=== PATIENT | male | born 1940 | race Caucasian/White ===

== ENCOUNTER → 2023-12-26 13:04 | Outpatient (REF) | payer MEDICARE, OTHER, SELFPAY | LOC: DHVS 13:04 | PROVIDERS: ATTENDING PHYSICIAN Surgery Vascular Surgery | DX: I73.9 Peripheral vascular disease, unspecified (principal) | CPT/HCPCS: 93922; 93925 ==

== ENCOUNTER → 2024-07-07 08:04 | Outpatient (REF) | payer MEDICARE, OTHER, SELFPAY | LOC: RAD 08:04 | PROVIDERS: ATTENDING PHYSICIAN Surgery Vascular Surgery; FAMILY PHYSICIAN Family Medicine | DX: I73.9 Peripheral vascular disease, unspecified (principal) | CPT/HCPCS: 93922; 93925 ==

== ENCOUNTER 2024-08-03 08:39 | Day surgery (SDC) | payer MEDICARE, OTHER, SELFPAY ==
[2024-08-03] VITALS (10 sets, daily range): BP systolic 124–180; BP diastolic 51–68; BMI 23.2
[2024-08-03 09:37] LABS: Hemoglobin 11.2 g/dL (13.0-18.0); Mean Corp Hgb Conc. 33.9 g/dL (33.0-37.0); Mean Corpuscular Hgb 36.1 pg (27.0-31.0); Mean Corpuscular Volume 106.5 fL (80.0-94.0); Mean Platelet Volume 9.8 fL (7.4-10.4); Platelet Count 192 10^3/uL (130-400); Red Cell Dist. Width 15.6 % (11.5-14.5); White Blood Cell Count 8.1 10^3/uL (4.8-10.8)
[2024-08-03] MEDS: NSS 500 IV (09:40)
--- NOTE | 2024-08-03 09:49 | W.SUR.PREOP ---
Pre-Operative Surgical Note
-
I have examined this patient prior to the performance of the scheduled procedure.
The patient's condition is unchanged from the time of the current History and
Physical and the patient is able to undergo the scheduled procedure.
[2024-08-03] MEDS: BACTROBAN NASAL 1 GRAM NASAL (10:05)
[2024-08-03] MEDS: PERIDEX 0.12% ORAL RINSE 15 ML PO (10:05)
[2024-08-03 10:12] LABS: INR 1.16; PT 15.1 Sec (11.4-14.6)
[2024-08-03 10:13] LABS: APTT 34.6 Sec (23.4-35.0)
[2024-08-03 10:55] LABS: Blood Urea Nitrogen 42 mg/dl (9-20); Calcium 8.6 mg/dl (8.4-10.2); Carbon Dioxide 29 mmol/L (22-30); Chloride 98 mmol/L (98-107); Estimated Creatinine Clearance 8 ml/min; Glucose 85 mg/dl (70-99); Potassium 4.7 mmol/L (3.5-5.1); Sodium 139 mmol/L (135-145); eGFR 7.57
--- NOTE | 2024-08-03 11:44 | W.SUR.POST ---
Surgical Immediate Post Op
Note
Pre Op Diagnosis: End-stage renal disease
Post Op Diagnosis: Same
Procedure Performed: Right upper extremity brachiobasilic AV fistula creation
Primary Surgeon: Darryl
Assist: Kameron PARDO
Anesthesia: LMA
Estimated Blood Loss: 5 cc
Fluids: See anesthesia flowsheet
Drains/Shunts: None
Specimens/Cultures: None
Doppler/Duplex/Angio (Y/N): Y
Complications: None
Operative Findings: Palpable thrill upon completion
--- NOTE | 2024-08-03 12:06 | OR.RPT ---
Operative Report
Operative Report
PROCEDURE DATE: 08/03/2024
Preoperative diagnosis: End-stage renal disease on hemodialysis
Postoperative diagnosis: Same
Procedure: Right upper extremity radiocephalic arteriovenous fistula creation
Surgeon: Darryl
Dining Room Hostess: RUSTY Melo, required for all aspects of procedure including assistance with traction/countertraction, following of suture line, assistance with closure.
Complications: None
Anesthesia: General
Indications for procedure:
End-stage renal disease on hemodialysis. Required more permanent access. Currently dialyzed via tunneled dialysis catheter. Left hand dominant. Risk/benefits/alternatives of fistula creation were discussed with the patient. He understood all
wish to proceed.
Description of procedure:
Patient was identified brought to the operating room placed on the table in supine position. After the induction of anesthesia I used a ultrasound to map the upper extremity veins myself. The cephalic vein in the upper arm but also in the forearm
looks very suitable. The radial artery itself also was very suitable with no evidence of inflow disease. Strong pulsation. Therefore I felt radiocephalic wrist fistula was very reasonable.
After the adequate administration of anesthesia and perioperative antibiotics he was prepped and draped in the standard surgical fashion. A standard preoperative timeout was undertaken and everybody was in agreement the plan. A longitudinal
incision was made distal forearm/wrist on the radial aspect in the right upper extremity. This was carried through skin subcutaneous tissue.
A small lateral subcutaneous flap was raised and the cephalic vein was identified. It was carefully dissected away from surrounding structures take great care to avoid any injury to the structures. Any branches were ligated between silk ties and
then divided. Thus this allowed me to mobilize the vein. It appeared to be a very suitably sized vein. Once I mobilized the suitable segment, I deepened my dissection in the medial aspect of the incision through the fascial layer. I identified
the radial artery. I carefully dissected away from surrounding structures take great care to avoid any injury to structures. I gently passed a vessel loop around it proximally and distally.
Next, I ligated the cephalic vein distally in my field with a silk tie and a clip. I then transected it. I distended the vein under heparinized saline. It distended very well. I passed the dilators using 2.0 and 2.5 mm which passed without any
difficulty whatsoever (while I could have passed a 3 mm dilator I felt that there was no need to as in my eyes this vein clearly measured over 3 mm when distended, and due to some tortuosity in the vein I did not wish to injure the vein passing
dilators). I marked the anterior surface of the vein under distention to avoid any kinking or twisting.
Next, I gave the patient 3000 units of intravenous heparin. I then placed Yasargil clips on the artery proximally and distally. I made an arteriotomy with a [place] blade and extended using a micro Woody scissor. I then trimmed and spatulated the
cephalic vein and sewed an end to side anastomosis using a running 7-0 Prolene suture (four-quadrant technique). I then completed and tied down my suture line. Next I released my proximal occlusive Yasargil clip to reestablish inflow. Finally I
released my outflow Yasargil clip. There was an excellent thrill in the fistula. There was an excellent palpable pulse in the radial distally at the very distal wrist. At this point I was very satisfied. I irrigated. I achieved and confirmed
full hemostasis. We then closed in layers using a couple interrupted 3-0 Vicryl's to tack down the subcutaneous flap area, followed by 3-0 Vicryl deep dermal layer followed by 4-0 Monocryl subcuticular stitch. Dermabond was applied. The patient
tolerated the procedure well. All sponge, needle, and instrument counts were correct at the end of the case. He was transported to the recovery room in good condition.
[2024-08-03] MEDS: SUBLIMAZE 25 MCG IV (12:19)
== END 2024-08-03 14:10 | disposition home or self-care (01) ==
LOC: CATH 08:39
PROVIDERS: ATTENDING PHYSICIAN Surgery Vascular Surgery; OTHER PHYSICIAN Internal Medicine Cardiovascular Disease; PRIMARYCARE PHYSICIAN Family Medicine
DX: N18.6 End stage renal disease (principal); Z99.2 Dependence on renal dialysis; Z79.01 Long term (current) use of anticoagulants; Z79.02 Long term (current) use of antithrombotics/antiplatelets; Z79.899 Other long term (current) drug therapy; I12.0 Hypertensive chronic kidney disease with stage 5 chronic kidney disease or end stage renal disease; J44.9 Chronic obstructive pulmonary disease, unspecified; I48.0 Paroxysmal atrial fibrillation
CPT/HCPCS: 36821; 80048; 85027; 85610; 85730; 86850; 86900; 86901; 93005

== ENCOUNTER → 2024-09-11 10:00 | Outpatient (REF) | payer MEDICARE, OTHER, SELFPAY | LOC: RAD 10:00 | PROVIDERS: ATTENDING PHYSICIAN Physician Assistant | DX: I77.0 Arteriovenous fistula, acquired (principal); N18.6 End stage renal disease | CPT/HCPCS: 93990 ==

== ENCOUNTER 2024-10-17 17:32 | Inpatient (IN) | payer MEDICARE, OTHER, SELFPAY ==
[2024-10-17] VITALS (22 sets, daily range): BP systolic 161–193; BP diastolic 65–141
--- NOTE | 2024-10-17 17:39 | HPS.HSE ---
Family Physician
-
Family Physician: Mike Mendoza MD
Chief Complaint
-
shortness of breath
History of Present Illness
Mr. Garcia Garcia is a 84 yo man with hx COPD, chronic hypoxic respiratory failure on 2L ESRD on HD, PAD s/p bilateral bypass surgery and endarterectomy (03/2023), s/p CEA 03/2021, essential HTN, paroxysmal atrial fibrillation, heart failure
preserve EF who presented to [facility] earlier this morning complaining of shortness of breath. When he woke up he noticed his oxygen was off but he was unable to recover prompting him to come to the ER. His O2 sat was in 60-70's.
In the ER he was noted to be tachypneic with diffuse wheezing. He was placed on BiPaP. CXR with evidence of pulmonary edema. His Troponin was elevated and Cardiology was consulted. Per Cardiology eval at [place], elevated Troponin thought 2/2
demand. Urgent fluid removal recommended. Given [place] does not do urgent HD over the weekend, decision made to transfer to for HD.
Medical History
Past Medical History
Past Medical History: Reports Other
Additional Past Medical History:
ASCVD / PAD
Hypertension
CKD III
Cervical DDD
COPD
Past Surgical History: Reports Other
Additional Past Surgical History:
Bilateral Femoral Endarterectomies (04/05/23)
Carotid Endarterectomy
Cervical Discectomy
Social History
Tobacco: Former Smoker (Quit smoking 30 years ago. Approx 40 pack years total use.)
Alcohol: Occasional
Drug: None
Family History
Family History: Not pertinent and Other (Father: CAD, COPD, HTN Mother: Low BP)
Allergies / Home Medications
Allergies reflects when Allergies were last updated in [employer].
Home Medications with original date entered in [employer]
Allergy/Medication List:
*awaiting med rec
Review of Systems
-
History Source: Patient
A 12 point ROS was completed and negative except as noted: Yes
Physical Exam
Physical Exam
General: Conversant and Other (on 6L, receiving HD )
HEENT: PERRLA
Respiratory: No Wheezes
Cardiac: S1/S2, Regular Rhythm and JVD
GI: Soft and Non Tender
Skin: Warm and Dry; No Rash
Neuro: AO x 3
Psych: Calm
Data Reviewed
-
Diagnostic Radiology: Report Reviewed by me
Lab Data: Labs Reviewed by me
Impression/Plan
-
Mr. Garcia Garcia is a 84 yo man with hx COPD, chronic hypoxic respiratory failure on 2L ESRD on HD, PAD s/p bilateral bypass surgery and endarterectomy (03/2023), s/p CEA 03/2021, essential HTN, paroxysmal atrial fibrillation, heart failure
preserve EF who presented to [facility] earlier this morning complaining of shortness of breath. When he woke up he noticed his oxygen was off but he was unable to recover prompting him to come to the ER. His O2 sat was in 60-70's. He was
placed on BiPAP in ER, arrives on 6L here. CXR showed pulmonary edema. Patient transferred to for urgent HD.
Acute on Chronic Hypoxic Respiratory Failure
Acute on Chronic heart failure preserved Ejection Fraction
ESRD on HD
-patient transferred to IMU, HD initiated at arrival for fluid removal
-appreciate renal consult
COPD
-continue home inhalers, no active wheezing heard on exam
Elevated Troponion noted at [place] with Cardiology consult suspected non ischemic myocardial injury
-obtain Troponin and EkG now
Essential HTN
-PHOTO COLORER regimen (awaiting med rec)
Paroxysmal Atrial Fibrillation
-PHOTO COLORER Eliquis
PAD
-history bilateral bypass 04/22
Carotid Stenosis s/p CEA 03/2021
DVT PPx PHOTO COLORER Eliquis
DNR - discussed on admission
76 minutes spent on patient care
--- NOTE | 2024-10-17 18:13 | W.CON.NEPH ---
Consultation
-
Date/Time Consultation Requested: 10/17/241749
Date/Time Consultation Performed: 10/17/241749
Requesting Provider: Yamilka Casanova
Performing Provider: Elvira Lynch
Reason for Consultation: ESRD
Medical History
-
Chief Complaint: SOB
History of Present Illness:
Mr. Garcia Garcia is a 84 yo man with hx COPD, chronic hypoxic respiratory failure on 2L of O2, ESRD on HD since Mar 2024 TTS at [facility] unit through right CW catheter and maturing right radial AVF created in 08/2024, PAD on plavix s/p
bilateral bypass surgery and endarterectomy (03/2023), s/p CEA 03/2021, essential HTN on hydralazine, nebivolol, amlodipine, paroxysmal atrial fibrillation on Amiodarone, AC with ELiquis, heart failure preserve EF follows Dr Hyman with known heart
murmur who presented to [facility] earlier this morning complaining of shortness of breath and hypoxia. When he woke up he noticed his oxygen was off 60-70s but he was unable to recover despite increasing his O2 at home still was reading in
80s prompting him to come to the ER at [facility]. He noted to have wheezing and CHF with JVD and started BiPAP with improvement. CXR showed pulm edema. Troponin elevated too which felt from demand ischemia per cardiology at [facility]. no new EKG changes per
ER notes. since he can not get urgent HD at [facility] with no stone product fabricator service of dialysis he transferred to through air lift.
He has c/o mild chest discomfort at ER. NO no new complaints. SOB better, no wheezing, currently on 6lit of O2 sating in mid 90s. No fever, but coughing frothy blood sputum. He reports not missed any HDs, new AVF has been accessed recently. He has
no issues with UF on HD though he reports last HD on only has 1kg removed. he reports compliance with diet and FR 33ounces/day.
Past Medical History
COPD, chronic hypoxic respiratory failure on 2L of O2, ESRD on HD since Mar 2024 TTS at [facility] unit , right radial AVF, PAD s/p bilateral bypass surgery and endarterectomy (03/2023), s/p CEA 03/2021, essential HTN , paroxysmal atrial
fibrillation, AC with ELiquis, heart failure preserve EF, hyperphosphatemia
Past Surgical History: Other (Bilateral Femoral Endarterectomies (04/05/23) Carotid Endarterectomy Cervical Discectomy, AVF 08/2024, inguinal hernia repair with mesh, bilat shoulder surgeries)
Social History
Tobacco: Former Smoker (quit 50 yrs ago)
Alcohol: Occasional
Personal:
Living: With Family
Family History
no CKD
Father: CAD, COPD, HTN Mother: Low BP
Family History: Not Pertinent
Allergies / Home Medications
Allergy/AdvReac Type Severity Reaction Status Date / Time
doxycycline Allergy confusion Verified 08/03/24 09:18
gabapentin Allergy dizziness Verified 08/03/24 09:18
hydrocodone Allergy Headache, Verified 08/03/24 09:18
Dizziness
�Medication �Instructions �Recorded �Confirmed �Type
acetaminophen 325 mg capsule 650 mg PO Q4H PRN pain 03/27/23 08/03/24 History
(Tylenol)
clopidogrel 75 mg tablet (Plavix) 75 mg PO QPM Blood Clot 03/27/23 08/03/24 History
Prevention/Tx
multivitamin 1 tab PO QPM Supplement 03/27/23 08/03/24 History
pantoprazole 40 mg tablet,delayed 40 mg PO DAILY Gastrointestinal 03/27/23 08/03/24 History
release (Protonix) Issue
rosuvastatin 20 mg tablet 10 mg PO QPM High Cholesterol 03/27/23 08/03/24 History
zolpidem 6.25 mg tablet,extended 6.25 mg PO HS Sleep 03/27/23 08/03/24 History
release,multiphase (Ambien CR)
albuterol sulfate 90 mcg/actuation 2 inh inhalation QID PRN sob 06/18/23 10/17/24 History
aerosol inhaler
amlodipine 5 mg tablet 2.5 mg PO BID 06/18/23 08/03/24 History
amiodarone 200 mg tablet 200 mg PO DAILY 07/30/24 08/03/24 History
apixaban 2.5 mg tablet (Eliquis) 2.5 mg PO BID 07/30/24 08/03/24 History
ascorbic acid (vitamin C) 500 mg 500 mg PO DAILY 07/30/24 08/03/24 History
tablet (Vitamin C)
empagliflozin 10 mg tablet 10 mg PO DAILY 07/30/24 08/03/24 History
(Jardiance)
ferrous sulfate 325 mg (65 mg 325 mg PO DAILY 07/30/24 08/03/24 History
iron) tablet (iron)
fluticasone fur. 100 mcg-umeclid 1 inh inhalation DAILY 07/30/24 10/17/24 History
62.5 mcg-vilant 25 mcg
inhalat.powder (Trelegy Ellipta)
hydralazine 25 mg tablet 25 mg PO TID 07/30/24 08/03/24 History
nebivolol 10 mg tablet 10 mg PO DAILY 07/30/24 08/03/24 History
sevelamer carbonate 800 mg tablet 800 mg PO AC 07/30/24 10/17/24 History
ensifentrine 3 mg/2.5 mL 2.5 ml inhalation BID 08/03/24 10/17/24 History
suspension for nebulization
(Ohtuvayre)
ketoconazole 2 % topical cream 1 applic topical DAILY 08/03/24 08/03/24 History
acetaminophen 500 mg tablet 1,000 mg PO BIDPRN PRN mild pain 10/17/24 10/17/24 History
(Tylenol Extra Strength)
vitamin B complex-vitamin C-folic 1 tab PO DAILY 10/17/24 10/17/24 History
acid 0.8 mg tablet (Ana-Morenita)
Review of Systems
-
All other systems: Negative unless noted
Physical Exam
Vital Signs
Vital Signs
Temp Pulse Resp BP Pulse Ox
98.0 F 72 19 190/77 96
10/17/24 17:46 10/17/24 17:44 10/17/24 17:44 10/17/24 17:44 10/17/24 17:58
Lab Results
labs reviewed from [facility]
Physical Exam
General: Awake, Alert, Oriented, AOx3, No Distress and Nontoxic
HEENT: EOMI, Anicteric, Facial Symmetry and Other (JVD mild)
Respiratory: Normal Excursion, Nonlabored Respirations and Other (decreased BS)
Cardiac: S1/S2, Regular Rate/Rhythm and Murmur
Breast: Deferred by me
Abdomen: Soft, Nontender and Nondistended
Musculoskeletal: No Cyanosis and No Edema
Skin: No Rash
Neuro: Nonfocal/Grossly Intact
Psych: Mood/afflect pleasant, Insight/judgement good and Appropriate
Vascular Access: AVF and CVC
Data Reviewed
-
Radiology: Report Reviewed by me and Discussed with Patient
Labs: Labs Reviewed by me and Discussed with Patient
Assessment/Plan
-
Assessment:
Acute on Chronic Hypoxic Respiratory Failure
Acute on Chronic heart failure preserved Ejection Fraction
ESRD on HD-TTS [place], HD since Mar 2024
COPD exacerbation
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
Essential HTN
Paroxysmal Atrial Fibrillation
PAD-history bilateral bypass 04/22
Carotid Stenosis s/p CEA 03/2021
Matured right brachial AVF
hyperphosphatemia
Anemia of CKD
Plan:
A/w resp failure from [facility], was on BIPAP, now on 6lit
records noted no hyperkalemia, CXR with pulm edema
no missed HD, due HD today
HD orders provided and UF as much he can tolerate
repeat labs ordered since he has bloody sputum
Bp are high expect to improve with HD
may need echo
troponin elevated but felt demand ischemia , need to trend
no reported EKG changes per ER notes
renal diet and FR 33ounces/day
resume phos binder
d/w pt in detail
d/w primary and nursing
CC time spent 60min in total coordinating care today
--- NOTE | 2024-10-17 18:15 | PTCARENOTE ---
Pt brought to IMU from [facility] ED for missed HD session today and possible COPD Exacerbation. Pt is 95% on 4L NC; hypertensive; HD nurse in room and setting up for HD immediately; trop,cmp, mrsa, and covid sent down to lab; Hospitalist Dr Salazar at
bedside; Pharmacist Rachel calling patient to do medication reconciliation over phone with patient; pt at bedside; pt is alert and oriented x4; awaiting further orders from provider after bedside assessment/interview. See flow sheets for
further care details
[2024-10-17 18:26] LABS: % Basophils 0.2 % (0-2); % Immature Granulocytes 0.5 % (0-0.5); % Lymphocytes 2.9 % (20.5-51.1); % Monocytes 0.9 % (1.7-9.3); % Neutrophils 95.5 % (42.2-75.2); Absolute Lymphocytes 0.2 10^3/uL (1.2-3.4); Absolute Monocytes 0.1 10^3/uL (0.1-0.6); Absolute Neutrophils 5.2 10^3/uL (1.4-6.5); Hematocrit 29.1 % (39.0-52.0); Hemoglobin 9.8 g/dL (13.0-18.0); Mean Corp Hgb Conc. 33.7 g/dL (33.0-37.0); Mean Corpuscular Hgb 35.8 pg (27.0-31.0); Mean Corpuscular Volume 106.2 fL (80.0-94.0); Mean Platelet Volume 9.3 fL (7.4-10.4); Nucleated Red Blood Cells % 0 % (-); Platelet Count 161 10^3/uL (130-400); Red Blood Cell Count 2.74 10^6/uL (4.70-6.10); Red Cell Dist. Width 14.1 % (11.5-14.5); White Blood Cell Count 5.5 10^3/uL (4.8-10.8)
[2024-10-17 18:47] LABS: COVID-19 Antigen Negative (Negative)
[2024-10-17 18:53] LABS: Blood Urea Nitrogen 28 mg/dl (9-20); Calcium 8.9 mg/dl (8.4-10.2); Carbon Dioxide 28 mmol/L (22-30); Chloride 96 mmol/L (98-107); Estimated Creatinine Clearance 7 ml/min; Glucose 145 mg/dl (70-99); Potassium 4.8 mmol/L (3.5-5.1); Sodium 137 mmol/L (135-145); eGFR 7.71
--- NOTE | 2024-10-17 18:59 | W.PN.UPDATE ---
Update Note
Progress Note Update
Troponin elevated in setting of hypoxia, volume overload in patient with renal disease. He has been chest pain free. Evaluated by Cardiology team at [facility] who believed elevated Troponin was secondary to demand. They used high sensitivity
Troponin, so difficult to compare values. Will continue ELECTRIC METER TESTER SHOP Eliquis and hold off on heparin gtt. If patient develops chest pain or Troponin increases will consider starting IV heparin gtt in place of Eliquis and consulting Cardiology tomorrow AM.
--- NOTE | 2024-10-17 19:06 | W.PN.NEPH.HD ---
Assessment
-
pt evaluated during HD
vitals stable, SBp at 180s
try as much as possible
labs noted, troponin pending
CVC functions well
spoke with on phone
Progress Note - Hemodialysis
-
Date of Service: October 17, 2024
Duration: 30 minutes and 3 hours
Potassium Bath: 2
Calcium Bath: 2.5
Opti-Dialyzer: 160
Ultrafiltration: Other (2.5-3kg)
Blood Flow: 350
Dialysate Flow: 600
Heparin: no
EPO: no
--- NOTE | 2024-10-17 20:00 | PTCARENOTE ---
Received pt. at 1900. Pt. currently in bed receiving HD treatment. Awake, alert, and oriented. Denies pain/discomfort. Heart rhythm sinus. Hypertensive, will give anti-hypertensive meds after HD treatment. Currently on nasal cannula. Lungs sound
diminished. PO diet, good appetite. Anuric. Skin as documented. Discussed plan of care with patient. Vital signs stable at this time.
[2024-10-17] MEDS: ELIQUIS 2.5 MG PO (20:17)
[2024-10-17] MEDS: PLAVIX 75 MG PO (20:17)
[2024-10-17] MEDS: CRESTOR 10 MG PO (20:18)
[2024-10-17 20:23] LABS: Hepatitis B Surface Antigen Negative (Negative)
[2024-10-17 20:41] LABS: Hepatitis B Surface Antibody Positive
[2024-10-17] MEDS: APRESOLINE 25 MG PO (22:18)
[2024-10-17] MEDS: NORVASC 2.5 MG PO (22:18)
[2024-10-18] VITALS (12 sets, daily range): BP systolic 155–199; BP diastolic 60–84; PULSE 83; O2SAT 95; BMI 19.7
[2024-10-18 04:00] LABS: Hematocrit 28.2 % (39.0-52.0); Hemoglobin 9.8 g/dL (13.0-18.0); Mean Corp Hgb Conc. 34.8 g/dL (33.0-37.0); Mean Corpuscular Hgb 36.3 pg (27.0-31.0); Mean Corpuscular Volume 104.4 fL (80.0-94.0); Mean Platelet Volume 9.5 fL (7.4-10.4); Platelet Count 178 10^3/uL (130-400); Red Cell Dist. Width 13.2 % (11.5-14.5); White Blood Cell Count 4.5 10^3/uL (4.8-10.8)
[2024-10-18 04:09] LABS: Blood Urea Nitrogen 21 mg/dl (9-20); Carbon Dioxide 26 mmol/L (22-30); Chloride 100 mmol/L (98-107); Estimated Creatinine Clearance 12 ml/min; Glucose 137 mg/dl (70-99); Magnesium 1.9 mg/dl (1.6-2.3); Potassium 4.4 mmol/L (3.5-5.1); Sodium 138 mmol/L (135-145); eGFR 15.96
--- NOTE | 2024-10-18 07:30 | W.PN.HOSP.TC ---
Today's Communication/Plan
-
HD per renal
PT/OT
wean O2 as able
trial of duoneb now to see if helps with SOB
Assessment / Plan
Assessment / Plan
Mr. Garcia Garcia is a 84 yo man with hx COPD, chronic hypoxic respiratory failure on 2L ESRD on HD, PAD s/p bilateral bypass surgery and endarterectomy (03/2023), s/p CEA 03/2021, essential HTN, paroxysmal atrial fibrillation, heart failure
preserve EF who presented to [facility] earlier this morning complaining of shortness of breath. When he woke up he noticed his oxygen was off but he was unable to recover prompting him to come to the ER. His O2 sat was in 60-70's. He was
placed on BiPAP in ER, arrives on 6L here. CXR showed pulmonary edema. Patient transferred to for urgent HD. He had frothy pink sputum on arrival in setting of pulmonary edema.
Acute on Chronic Hypoxic Respiratory Failure
Acute on Chronic heart failure preserved Ejection Fraction
ESRD on HD
-patient transferred to IMU, HD initiated at arrival for fluid removal
-appreciate renal consult
-wean O2 as able (patient on 2L at home)
-further HD per renal
-stop Jardiance
COPD
-continue home inhalers, no active wheezing heard on exam
Elevated Troponin; non ischemic myocardial injury
- noted at [facility] with Cardiology consult suspected non ischemic myocardial injury in setting of prolonged hypoxia, volume overload and renal disease
- Troponin trending down post fluid removal
- patient without chest pain
- TTE tomorrow
- IRRIGATOR Plavix; Eliquis
Essential HTN
-IRRIGATOR regimen (awaiting med rec)
Paroxysmal Atrial Fibrillation
-IRRIGATOR Eliquis
PAD
-history bilateral bypass 04/22
-IRRIGATOR Plavix/Eliquis/Statin
Carotid Stenosis s/p CEA 03/2021
DVT PPx IRRIGATOR Eliquis
DNR - discussed on admission
51 minutes spent on patient care
Anticipated Discharge: 24 - 48 hours
Subjective/Interval History
-
Date of Service: October 18, 2024
he remains short of breath
appears a bit anxious this morning
Objective Data
-
Labs:
Laboratory Results
10/18/24
03:37
WBC 4.5 L
Hgb 9.8 L
Hct 28.2 L
Plt Count 178
Sodium 138
Potassium 4.4
Chloride 100
Carbon Dioxide 26
BUN 21 H
Creatinine 3.6 H
Glucose 137 H
Calcium 9.0
Vital Signs:
Vital Signs
Temp Pulse Resp BP Pulse Ox
98.1 F 81 32 180/78 97
10/18/24 03:00 10/18/24 06:00 10/18/24 06:00 10/18/24 06:00 10/18/24 05:30
I&O
10/17/24 10/18/24 10/19/24
06:59 06:59 06:59
Intake Total 100 / 100
Balance 100 / 100
Review of Systems
-
History Source: Patient
All other systems: Reviewed and negative
Physical Exam
-
General: No Apparent Distress and Conversant
HEENT: PERRLA
Respiratory: Negative Wheezes
Cardiac: Regular Rhythm and S1/S2
GI: Soft and Nontender
Musculoskeletal: No Edema
Skin: Warm and Dry
Neuro: AO x 3
Psych: Calm
Data Reviewed
-
Diagnostic Radiology: Report Reviewed by me
Labs: Labs Reviewed by me
[2024-10-18] MEDS: DUONEB 3 ML INH (07:47)
[2024-10-18] MEDS: SYMBICORT 80/4.5 MCG INHALER 2 PUFF INH ×2 (08:01→21:21)
[2024-10-18] MEDS: SPIRIVA RESPIMAT 2.5 MCG 2 PUFF INH (08:01)
[2024-10-18] MEDS: PROTONIX 40 MG PO (10:00)
[2024-10-18] MEDS: NORVASC 2.5 MG PO ×2 (10:00→20:44)
[2024-10-18] MEDS: APRESOLINE 25 MG PO ×2 (10:00→20:43)
[2024-10-18] MEDS: RENVELA 800 MG PO (10:00)
[2024-10-18] MEDS: PACERONE 200 MG PO (10:00)
[2024-10-18] MEDS: CORTISPORIN OTIC SUSPENSION 1 DROP BOTH EARS (10:01)
[2024-10-18] MEDS: ELIQUIS 2.5 MG PO ×2 (10:01→20:43)
--- NOTE | 2024-10-18 12:27 | W.PN.NEPH.PH ---
Today's Communication / Plan
-
possible UF tomorrow
Assessment/Plan
-
Assessment:
Acute on Chronic Hypoxic Respiratory Failure
Acute on Chronic heart failure preserved Ejection Fraction
ESRD on HD-TTS [place], HD since Mar 2024
COPD exacerbation
Elevated Troponion noted SAFETY LEAD
Essential HTN
Paroxysmal Atrial Fibrillation
PAD-history bilateral bypass 04/22
Carotid Stenosis s/p CEA 03/2021
Matured right brachial AVF
hyperphosphatemia
Anemia of CKD
Plan:
A/w resp failure from [facility], was on BIPAP
improving resp status but not baseline
suspect he is below EDW
BP remains high back on home meds
will eval if need of extra UF tomorrow
may need echo
troponin elevated but felt demand ischemia
renal diet and FR 33ounces/day
cont phos binder
d/w pt
-
-
Date of Service: October 18, 2024
CC / HPI / ROS
-
Chief Complaint:
ESRD
History of Present Illness:
BP are still high
wt is down
on 2lit of O2
tenderizer tender fever
Review of Systems:
sob much better, still CABEZAS
no CP. cough improving and clear now
Labs
-
Labs:
WBC 4.5 10^3/uL (4.8-10.8) L 10/18/24 03:37
RBC 2.70 10^6/uL (4.70-6.10) L 10/18/24 03:37
Hgb 9.8 g/dL (13.0-18.0) L 10/18/24 03:37
Hct 28.2 % (39.0-52.0) L 10/18/24 03:37
Plt Count 178 10^3/uL (130-400) 10/18/24 03:37
Sodium 138 mmol/L (135-145) 10/18/24 03:37
Potassium 4.4 mmol/L (3.5-5.1) 10/18/24 03:37
Chloride 100 mmol/L (98-107) 10/18/24 03:37
Carbon Dioxide 26 mmol/L (22-30) 10/18/24 03:37
BUN 21 mg/dl (9-20) H 10/18/24 03:37
Creatinine 3.6 mg/dL (0.7-1.3) H 10/18/24 03:37
eGFR 15.96 10/18/24 03:37
Glucose 137 mg/dl (70-99) H 10/18/24 03:37
Calcium 9.0 mg/dl (8.4-10.2) 10/18/24 03:37
Physical Exam
-
Vital Signs:
Vital Signs
Temp Pulse Resp BP Pulse Ox
97.8 F 78 18 183/74 96
10/18/24 11:40 10/18/24 11:00 10/18/24 11:00 10/18/24 10:05 10/18/24 11:00
Cardiovascular:: Regular rate and rhythm
Lung Excursion:: Normal (decreased BS)
Abdomen:: Nontender and Soft
Extremity Edema:: None: Bilateral:
Ansari Catheter: No
--- NOTE | 2024-10-18 12:47 | CM ---
Reviewed the chart notes and spoke with the patient at the bedside. The patient reports residing in a two story home with first floor bedroom. Patient has a rolling walker, shower chair, and home O2 through [employer]. The patient has had [facility]
VN and [facility] VN in the past, but no SNF. The patient confirmed his pharmacy of choice is [facility]. The patient receives HD TTS at [facility]. CM continues to be available to patient/family and is monitoring medical plan for
needs at discharge.
Plan: Discharge plans will depend on the patient's progress.
[2024-10-18] MEDS: CRESTOR 10 MG PO (17:11)
[2024-10-18] MEDS: PLAVIX 75 MG PO (17:11)
--- NOTE | 2024-10-18 17:50 | PTCARENOTE ---
Patient sitting in the chair since 10:00 AM. Pt using RW and walked into bathroom twice during shift. Pt is able to make needs known. Oxygen weaned to 2L NC, which is the same as his home use. Pt has no complaints. Assessment, care and VS as
charted.
[2024-10-18] MEDS: AMBIEN 5 MG PO (22:31)
[2024-10-19] VITALS (16 sets, daily range): BP systolic 141–201; BP diastolic 57–140; BMI 20.1
[2024-10-19] MEDS: APRESOLINE 5 MG IV (03:33)
[2024-10-19 04:17] LABS: Blood Urea Nitrogen 46 mg/dl (9-20); Calcium 9.3 mg/dl (8.4-10.2); Carbon Dioxide 26 mmol/L (22-30); Chloride 98 mmol/L (98-107); Estimated Creatinine Clearance 8 ml/min; Glucose 128 mg/dl (70-99); Potassium 4.2 mmol/L (3.5-5.1); Sodium 137 mmol/L (135-145); eGFR 9.59
[2024-10-19] MEDS: SPIRIVA RESPIMAT 2.5 MCG 2 PUFF INH (08:07)
[2024-10-19] MEDS: SYMBICORT 80/4.5 MCG INHALER 2 PUFF INH ×2 (08:07→20:02)
[2024-10-19] MEDS: PROTONIX 40 MG PO (10:19)
[2024-10-19] MEDS: NORVASC 2.5 MG PO ×2 (10:19→19:48)
[2024-10-19] MEDS: ELIQUIS 2.5 MG PO ×2 (10:19→19:48)
[2024-10-19] MEDS: RENVELA 800 MG PO (10:19)
[2024-10-19] MEDS: PACERONE 200 MG PO (10:19)
[2024-10-19] MEDS: APRESOLINE 25 MG PO ×2 (10:20→19:48)
[2024-10-19] MEDS: CORTISPORIN OTIC SUSPENSION 1 DROP BOTH EARS (10:20)
--- NOTE | 2024-10-19 11:00 | PTCARENOTE ---
Assumed care of patient at 0645. Assessment completed and documented in shift assessment.
Patient admitted over weekend as a transfer from [facility], with concern for fluid overload/need for emergent HD. Patient is pleasant, cooperative and AAOX3, with hearing aids. 2L NC with humidification at baseline. CABEZAS. Lungs diminished, no wheezing
auscultated. SR on Monitor. R Lower Arm Fistula + Brut and Thrill. L FA IV patent. Anuric. Pending nephro eval, may have another HD session today. Sat on edge of bed for breakfast, assisted into chair after.
--- NOTE | 2024-10-19 13:59 | W.PN.NEPH.PH ---
Today's Communication / Plan
-
HD tomorrow
Assessment/Plan
-
Assessment:
Acute on Chronic Hypoxic Respiratory Failure
Acute on Chronic heart failure preserved Ejection Fraction
ESRD on HD-TTS [place], HD since Mar 2024
COPD exacerbation
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
Essential HTN
Paroxysmal Atrial Fibrillation
PAD-history bilateral bypass 04/22
Carotid Stenosis s/p CEA 03/2021
Matured right brachial AVF
hyperphosphatemia
Anemia of CKD
Plan:
A/w resp failure from [facility], was on BIPAP
improving resp status close to baseline
BP stable on home meds
unable to get extra UF today with busy scheduling of HD
pending echo report
troponin elevated but felt demand ischemia
renal diet and FR 33ounces/day
cont phos binder
HD tomorrow
d/w pt
-
-
Date of Service: October 19, 2024
CC / HPI / ROS
-
Chief Complaint:
ESRD
History of Present Illness:
BP are stable
wt is up
on 2lit of O2
no fever
Review of Systems:
sob much better, still CABEZAS , close to baseline
no CP.
Labs
-
Labs:
WBC 4.5 10^3/uL (4.8-10.8) L 10/18/24 03:37
RBC 2.70 10^6/uL (4.70-6.10) L 10/18/24 03:37
Hgb 9.8 g/dL (13.0-18.0) L 10/18/24 03:37
Hct 28.2 % (39.0-52.0) L 10/18/24 03:37
Plt Count 178 10^3/uL (130-400) 10/18/24 03:37
Sodium 137 mmol/L (135-145) 10/19/24 03:42
Potassium 4.2 mmol/L (3.5-5.1) 10/19/24 03:42
Chloride 98 mmol/L (98-107) 10/19/24 03:42
Carbon Dioxide 26 mmol/L (22-30) 10/19/24 03:42
BUN 46 mg/dl (9-20) H 10/19/24 03:42
Creatinine 5.5 mg/dL (0.7-1.3) H* 10/19/24 03:42
eGFR 9.59 10/19/24 03:42
Glucose 128 mg/dl (70-99) H 10/19/24 03:42
Calcium 9.3 mg/dl (8.4-10.2) 10/19/24 03:42
Physical Exam
-
Vital Signs:
Vital Signs
Temp Pulse Resp BP Pulse Ox
98.7 F 67 17 141/97 97
10/19/24 11:00 10/19/24 12:00 10/19/24 12:00 10/19/24 12:00 10/19/24 12:00
Cardiovascular:: Regular rate and rhythm
Lung Excursion:: Normal (decreased BS)
Abdomen:: Nontender and Soft
Extremity Edema:: None: Bilateral:
Ansari Catheter: No
--- NOTE | 2024-10-19 15:19 | W.PN.HOSP.TC ---
Today's Communication/Plan
-
HD tomorrow
Follow-up echo results
Assessment / Plan
Assessment / Plan
Mr. Garcia Garcia is a 84 yo man with hx COPD, chronic hypoxic respiratory failure on 2L ESRD on HD, PAD s/p bilateral bypass surgery and endarterectomy (03/2023), s/p CEA 03/2021, essential HTN, paroxysmal atrial fibrillation, heart failure
preserve EF who presented to [facility] earlier this morning complaining of shortness of breath. When he woke up he noticed his oxygen was off but he was unable to recover prompting him to come to the ER. His O2 sat was in 60-70's. He was
placed on BiPAP in ER, arrives on 6L here. CXR showed pulmonary edema. Patient transferred to for urgent HD. He had frothy pink sputum on arrival in setting of pulmonary edema.
Acute on Chronic Hypoxic Respiratory Failure
Acute on Chronic heart failure preserved Ejection Fraction
ESRD on HD
-appreciate renal consult
-wean O2 as able (patient on 2L at home)
-further HD per renal, plan for tomorrow
-stop Jardiance
COPD
-continue home inhalers, no active wheezing heard on exam
Elevated Troponin; non ischemic myocardial injury
- noted at [place] with Cardiology consult suspected non ischemic myocardial injury in setting of prolonged hypoxia, volume overload and renal disease
- Troponin trending down post fluid removal
- patient without chest pain
- TTE follow-up
- BREWERY REPRESENTATIVE Plavix; Eliquis
Essential HTN
-BREWERY REPRESENTATIVE regimen
Paroxysmal Atrial Fibrillation
-BREWERY REPRESENTATIVE Eliquis
PAD
-history bilateral bypass 04/22
-BREWERY REPRESENTATIVE Plavix/Eliquis/Statin
Carotid Stenosis s/p CEA 03/2021
DVT PPx BREWERY REPRESENTATIVE Eliquis
DNR -
Anticipated Discharge: > 48 hours
Subjective/Interval History
-
Date of Service: October 19, 2024
No events, was getting echo performed. Planning for HD session tomorrow
Objective Data
-
Labs:
Laboratory Results
10/19/24
03:42
Sodium 137
Potassium 4.2
Chloride 98
Carbon Dioxide 26
BUN 46 H
Creatinine 5.5 H*
Glucose 128 H
Calcium 9.3
Vital Signs:
Vital Signs
Temp Pulse Resp BP Pulse Ox
98.7 F 76 26 174/67 95
10/19/24 11:00 10/19/24 14:00 10/19/24 14:00 10/19/24 14:00 10/19/24 14:00
I&O
10/18/24 10/19/24 10/20/24
06:59 06:59 06:59
Intake Total 100 / 100 1080 / 1080
Balance 100 / 100 1080 / 1080
Review of Systems
-
History Source: Patient
All other systems: Not reviewed unless documented
Physical Exam
-
General: No Apparent Distress and Conversant
HEENT: PERRLA
Respiratory: Negative Wheezes
Cardiac: Regular Rhythm and S1/S2
GI: Soft and Nontender
Musculoskeletal: No Edema
Skin: Warm and Dry
Neuro: AO x 3
Psych: Calm
--- NOTE | 2024-10-19 16:37 | CM ---
Patient from [facility] with Hx ESRD on HD with Dx HF. O2 2L. PT recommends HH.
Met with patient and Angelica; discussed patient's therapy recommendations as per PT - patient says he had [facility] and would like to resume their service. Patient confirms he has home O2 concentrator/portables.
Phone call to [facility]; left message that referral was placed.
Plan follow up with [facility] for acceptance.
[2024-10-19] MEDS: CRESTOR 10 MG PO (18:01)
[2024-10-19] MEDS: PLAVIX 75 MG PO (18:01)
[2024-10-19] MEDS: TYLENOL 1000 MG PO (18:06)
[2024-10-19] MEDS: AMBIEN 5 MG PO (22:26)
--- NOTE | 2024-10-19 22:43 | PTCARENOTE ---
assumed care of patient. pt is AAOx3, [place]. able to make needs known. VSS. on 2L 97%. pt sitting in chair at shift change, x1 assist to get back to bed without issues. SOB on exertion, some wheezes noted. some c/o lower back pain, pt aware of need to
ask for pain meds. anuric per patient. care ongoing. BP on higher side, for HD 10/20. will monitor BP. care ongoing.
[2024-10-20] VITALS (41 sets, daily range): BP systolic 117–187; BP diastolic 52–171; BMI 20.3
[2024-10-20] MEDS: APRESOLINE 5 MG IV (02:02)
--- NOTE | 2024-10-20 02:10 | PTCARENOTE ---
pt BP has been creeping up throughout the night. BP 170s/60s. asymptomatic, pt sleeping. notified Val PARDO- orders entered for x1 5mg hydralazine IV. medication given per AUG. will monitor response. care ongoing.
[2024-10-20] MEDS: SPIRIVA RESPIMAT 2.5 MCG 2 PUFF INH (06:54)
[2024-10-20] MEDS: SYMBICORT 80/4.5 MCG INHALER 2 PUFF INH ×2 (06:55→19:26)
[2024-10-20] MEDS: VENTOLIN NEBULES 2.5 MG INH (06:55)
[2024-10-20] MEDS: RENVELA 800 MG PO (07:48)
[2024-10-20] MEDS: CORTISPORIN OTIC SUSPENSION 1 DROP BOTH EARS (07:48)
[2024-10-20] MEDS: ELIQUIS 2.5 MG PO ×2 (07:48→20:08)
[2024-10-20] MEDS: PROTONIX 40 MG PO (07:48)
--- NOTE | 2024-10-20 09:11 | CM ---
Patient from [facility] with Hx ESRD on HD with Dx HF, COPD. O2 6L. PT recommends HH.
Spoke with Theo Steiner (ph Intake [phone]); the patient was not currently on service however she confirmed they had seen him in the past. They are able to accept the referral. Fax d/c info to [phone].
Plan follow patient's O2 needs for d/c.
Plan home with [facility].
[2024-10-20 09:24] LABS: Hematocrit 27.5 % (39.0-52.0); Hemoglobin 9.3 g/dL (13.0-18.0); Mean Corp Hgb Conc. 33.8 g/dL (33.0-37.0); Mean Corpuscular Hgb 35.9 pg (27.0-31.0); Mean Corpuscular Volume 106.2 fL (80.0-94.0); Mean Platelet Volume 9.3 fL (7.4-10.4); Platelet Count 198 10^3/uL (130-400); Red Blood Cell Count 2.59 10^6/uL (4.70-6.10); Red Cell Dist. Width 13.9 % (11.5-14.5); White Blood Cell Count 10.2 10^3/uL (4.8-10.8)
--- NOTE | 2024-10-20 09:29 | W.PN.NEPH.HD ---
Assessment
-
Patient seen on HD
sbp 187 at current u/f
HD via catheter
Progress Note - Hemodialysis
-
Date of Service: October 20, 2024
Duration: 30 minutes and 3 hours
Potassium Bath: 2
Calcium Bath: 2.5
Opti-Dialyzer: 160
Ultrafiltration: Other (3kg)
Blood Flow: 400
Dialysate Flow: 600
Heparin: none
EPO: 2000
[2024-10-20 10:22] LABS: Blood Urea Nitrogen 61 mg/dl (9-20); Carbon Dioxide 25 mmol/L (22-30); Chloride 97 mmol/L (98-107); Estimated Creatinine Clearance 6 ml/min; Glucose 109 mg/dl (70-99); Sodium 136 mmol/L (135-145); eGFR 6.31
[2024-10-20] MEDS: RETACRIT 2000 UNITS IV (10:51)
[2024-10-20] MEDS: TYLENOL 1000 MG PO ×2 (10:52→20:07)
[2024-10-20] MEDS: PACERONE 200 MG PO (13:41)
[2024-10-20] MEDS: APRESOLINE 25 MG PO ×2 (13:41→20:07)
[2024-10-20] MEDS: NORVASC 2.5 MG PO (13:42)
--- NOTE | 2024-10-20 14:14 | W.PN.HOSP.TC ---
Today's Communication/Plan
-
HD
Cards consult for ECHO Density in LVOT
Assessment / Plan
Assessment / Plan
Mr. Garcia Garcia is a 84 yo man with hx COPD, chronic hypoxic respiratory failure on 2L ESRD on HD, PAD s/p bilateral bypass surgery and endarterectomy (03/2023), s/p CEA 03/2021, essential HTN, paroxysmal atrial fibrillation, heart failure
preserve EF who presented to [facility] earlier this morning complaining of shortness of breath. When he woke up he noticed his oxygen was off but he was unable to recover prompting him to come to the ER. His O2 sat was in 60-70's. He was
placed on BiPAP in ER, arrives on 6L here. CXR showed pulmonary edema. Patient transferred to for urgent HD. He had frothy pink sputum on arrival in setting of pulmonary edema.
Acute on Chronic Hypoxic Respiratory Failure
Acute on Chronic heart failure preserved Ejection Fraction
ESRD on HD
-appreciate renal consult
-wean O2 as able (patient on 2L at home)
-further HD per renal, plan for today
-stop Jardiance
COPD
-continue home inhalers, no active wheezing heard on exam
Elevated Troponin; non ischemic myocardial injury
- noted at [place] with Cardiology consult suspected non ischemic myocardial injury in setting of prolonged hypoxia, volume overload and renal disease
- Troponin trending down post fluid removal
- patient without chest pain
- TTE follow-up�EF 60 to 65%, stage II diastolic dysfunction
- LOG SORTING SUPERVISOR Plavix; Eliquis
-Cards consulted
#ECHO Density seenin LVOT
-cardiology consulted
Essential HTN
-LOG SORTING SUPERVISOR regimen
Paroxysmal Atrial Fibrillation
-LOG SORTING SUPERVISOR Eliquis
PAD
-history bilateral bypass 04/22
-LOG SORTING SUPERVISOR Plavix/Eliquis/Statin
Carotid Stenosis s/p CEA 03/2021
DVT PPx LOG SORTING SUPERVISOR Eliquis
DNR -
Anticipated Discharge: 24 - 48 hours
Subjective/Interval History
-
Date of Service: October 20, 2024
Still with shortness of breath
Objective Data
-
Labs:
Laboratory Results
10/20/24
08:43
WBC 10.2
Hgb 9.3 L
Hct 27.5 L
Plt Count 198
Sodium 136
Potassium 4.0
Chloride 97 L
Carbon Dioxide 25
BUN 61 H
Creatinine 7.8 H*
Glucose 109 H
Calcium 9.0
Vital Signs:
Vital Signs
Temp Pulse Resp BP Pulse Ox
98.7 F 0 34 160/71 96
10/20/24 07:05 10/20/24 13:42 10/20/24 13:34 10/20/24 13:42 10/20/24 13:34
I&O
10/19/24 10/20/24 10/21/24
06:59 06:59 06:59
Intake Total 1080 / 1080
Balance 1080 / 1080
Review of Systems
-
History Source: Patient
All other systems: Not reviewed unless documented
Physical Exam
-
General: No Apparent Distress and Conversant
HEENT: PERRLA
Respiratory: Negative Wheezes
Cardiac: Regular Rhythm and S1/S2
GI: Soft and Nontender
Musculoskeletal: No Edema
Skin: Warm and Dry
Neuro: AO x 3
Psych: Calm
Data Reviewed
-
Diagnostic Radiology: Report Reviewed by me
Labs: Labs Reviewed by me
--- NOTE | 2024-10-20 14:44 | CON.CAR ---
Addendum entered and electronically signed by Jian Guerra MD 10/20/24 16:55:
Attending addendum: Patient seen and examined. PA note reviewed and findings independently confirmed by me. Briefly, Mr. 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 He is typically
followed by Dr. Jian Hyman and is received in transfer from [facility]. He apparently was seen in the ED at [facility] with O2 sats in the 60-70's. He was placed on BiPAP and his chest X-ray was concerning for pulmonary edema. His past
medical history is quite complex with a history of ESRD on HD since 03/2024, PVDz s/p bilateral femoral endarterectomy and CEA in 2020. He is hypertensive and has a history of aortic stenosis mild to moderate. His proBNP on admission to [facility] was
51,000 and they apparently had no mechanism to perform HD emergently and he was transferred via helicopter to [facility]. We were asked to evaluate for an elevated troponin of 1.85 ng/ml on admission. He states that he is chronically very
functionally limited due to shortness of breath from 'heavy tobacco use' for 30 years. He stopped smoking about 30 years ago but smoked 1-1.5 ppd for 30 years.
-10/19/2024: Echo: LV: Small chamber dimensions. Preserved systolic function estimated at 60-65%. Stage II diastolic dysfunction. There is a prominent echodensity in the LVOT that is poorly characterized on the current study. It is possible this
represents a variant of MAC or possible healed endocarditis. RV: Dilated, LA: Normal, RA: Normal, MV: Mild MR with MAC. AV: Thickened and calcified. Moderate aortic stenosis with peak and mean gradients of 35 and 20 mmHg. Mild aortic
insufficiency. TV: Severe tricuspid regurgitation with severe pulmonary hypertension and estimated pulmonary systolic pressures of 60-65 mmHg
Physical exam: Blood pressures typically running 140-190 / 60-83
GEN: AAO x 3. No acute distress.
HEENT: NC/AT, sclera are anicteric. Hearing aids are worn. Glasses are present
LUNGS: Crackles at the bases bilaterally. Reasonable air movement. No wheezing.
CV: Regular rate and rhythm. Normal S1/S2. No S3, No S4. Murmur: None
ABD : Soft, NT, Bowel sounds are present.
EXT: No CCE
NEURO: Awake, alert, conversant. Moves all extremities. Follows commands appropriately. No obvious focal neurologic deficit
RECOMMENDATIONS:
-Elevated troponin with no chest discomfort in the setting of end-stage renal disease and heart failure
Significance is uncertain and not likely to represent an acute coronary syndrome with preserved LVEF, unchanged ECG, and absence of any anginal symptoms.
Would likely benefit from an ischemic evaluation at some point
Continue clopidogrel and apixaban at this point
Check fasting lipid profile
-LVOT Density:
poorly defined by transthoracic echocardiogram
It would be helpful to have Dr. Hyman / David review last echocardiogram and see if a similar echodensity was noted on prior imaging
Check serial blood cultures for different sites to exclude endocarditis
Consider SULEIMAN if this is a new finding
-ESRD and volume overload / Hypertension
continued volume management with HD
Needs more aggressive blood pressure control. Not sure if he is becoming hypotensive after HD but would probably benefit from more amlodipine +/- more hydralazine.
Nephrology should weigh in on further pharmacologic measures for blood pressure control
-CODP/O2 dependent:
Intermittent home O2
Chronic amiodarone therapy: Check TSH if not done recently.
Not sure if PFT's have been done but given underlying pulmonary issues may want to consider. Very difficult situation w afib and COPD/respiratory insufficiency
-Paroxysmal atrial fibrillation
Currently in SR
Continue reduced dose apixaban given weight and age
Chronic amiodarone therapy: Check TSH if not done recently.
Not sure if PFT's have been done but given underlying pulmonary issues may want to consider. Very difficult situation w afib and COPD/respiratory insufficiency
Original Note:
Consultation
Consultation Request
Date/Time Consultation Performed: 10/20/24
Requesting Provider: Dr. Avina
Performing Provider: Anna Griffiths PA-C for Dr. Guerra
Reason for Consultation: elevated troponin
Medical History
-
Chief Complaint: SOB
History of Present Illness:
Patient is an 84 yo M with PMH of COPD on chronic O2 2L NC, ESRD on HD since 03/2024, PAD s/p B/L femoral endarterectomy, carotid stenosis s/p CEA 2020, HTN, PAF, chronic HFpEF who presented to [facility] 10/17/24 due to SOB. His oxygen had been off however
he did not have significant improvement in symptoms with placing back on. Sats were in 60-70s on arrival and was placed on BIPAP. He was noted to have evidence of pulm edema on CXR and was transferred to for urgent HD as reportedly [facility] does not
offer HD on weekends. He reports that the amount of fluid that they had been taking off with dialysis had decreased over the last several sections prior to admission, and he is unsure of why. Trop peaked at 1.8 and trending down. Echo showed
preserved EF with echodensity of LVOT noted. Cardiology consulted for evaluation.
PMH:
Chronic HFpEF
COPD
Chronic hypoxic respiratory insufficiency, on 2L NC
ESRD on HD since 03/2024
PAD s/p B/L femoral endarterectomy
PVD
Carotid stenosis s/p R CEA 2020
HTN
HLD
PAF
Chronic amio therapy
Chronic eliquis therapy
History of bladder cancer
Hearing loss, wears hearing aids
DJD s/p lumbar laminectomy 2021
Past Medical History
Past Medical History: Other (in HPI)
Social History
Tobacco: Former Smoker
Personal:
Living: With Family
Employment: Retired
Family History
Family History: CAD
Allergies / Home Medications
Allergy/AdvReac Type Severity Reaction Status Date / Time
doxycycline Allergy confusion Verified 10/17/24 19:09
gabapentin Allergy dizziness Verified 10/17/24 19:09
hydrocodone Allergy Headache, Verified 10/17/24 19:09
Dizziness
�Medication �Instructions �Recorded �Confirmed �Type
clopidogrel 75 mg tablet (Plavix) 75 mg PO QPM Blood Clot 03/27/23 10/17/24 History
Prevention/Tx
pantoprazole 40 mg tablet,delayed 40 mg PO DAILY Gastrointestinal 03/27/23 10/17/24 History
release (Protonix) Issue
zolpidem 6.25 mg tablet,extended 6.25 mg PO HS Sleep 03/27/23 10/17/24 History
release,multiphase (Ambien CR)
albuterol sulfate 90 mcg/actuation 2 inh inhalation QID PRN sob 06/18/23 10/17/24 History
aerosol inhaler
amiodarone 200 mg tablet 200 mg PO DAILY AFIB 07/30/24 10/17/24 History
ascorbic acid (vitamin C) 500 mg 500 mg PO DAILY Supplement 07/30/24 10/17/24 History
tablet (Vitamin C)
empagliflozin 10 mg tablet 10 mg PO DAILY Diabetes 07/30/24 10/17/24 History
(Jardiance)
fluticasone fur. 100 mcg-umeclid 1 inh inhalation DAILY 07/30/24 10/17/24 History
62.5 mcg-vilant 25 mcg Lung/Breathing Issues
inhalat.powder (Trelegy Ellipta)
hydralazine 25 mg tablet 25 mg PO BID Blood Pressure 07/30/24 10/17/24 History
sevelamer carbonate 800 mg tablet 800 mg PO DAILY CKD 07/30/24 10/17/24 History
ensifentrine 3 mg/2.5 mL 2.5 ml inhalation BID COPD 08/03/24 10/17/24 History
suspension for nebulization
(Ohtuvayre)
acetaminophen 500 mg tablet 1,000 mg PO BIDPRN PRN mild pain 10/17/24 10/17/24 History
(Tylenol Extra Strength)
amlodipine 2.5 mg tablet 2.5 mg PO BID Blood Pressure 10/17/24 10/17/24 History
apixaban 2.5 mg tablet (Eliquis) 2.5 mg PO BID Blood Clot 10/17/24 10/17/24 History
Prevention/Tx
elxfyhgu-ilkorcqsa-lbtowzmum 3.5 1 drp EACH EAR DAILY EAR INFECTION 10/17/24 10/17/24 History
mg-10,000 unit/mL-1 % ear
drops,susp
rosuvastatin 10 mg tablet 10 mg PO QPM High Cholesterol 10/17/24 10/17/24 History
triamcinolone acetonide 0.1 % 1 applic topical BIDPRN PRN 10/17/24 10/17/24 History
topical cream itching skin
vitamin B complex-vitamin C-folic 1 tab PO DAILY Supplement 10/17/24 10/17/24 History
acid 0.8 mg tablet (Ana-Morenita)
Review of Systems
-
History Source: Patient
All other systems: Negative unless noted
Physical Exam
Vital Signs
Temp Pulse Resp BP Pulse Ox
98.7 F 0 34 160/71 96
10/20/24 07:05 10/20/24 13:42 10/20/24 13:34 10/20/24 13:42 10/20/24 13:34
Lab Results
10/20/24 08:43
10/20/24 08:43
Troponin I Cancelled 10/18/24 08:20
Physical Exam
General: Other (sitting in chair. on supp O2. dyspnea with conversation)
HEENT: Normocephalic, Anicteric and Moist Mucous Membranes
Respiratory: Crackles (with decreased BS at bases) and Non Labored Respirations
Cardiac: S1/S2, Regular Rhythm and Murmur
GI: Soft, Non Tender, Non Distended and Normal Bowel Sounds
Musculoskeletal: No Clubbing, No Cyanosis and No Edema
Skin: Warm and Dry
Neuro: AO x 3
Impression / Plan
-
Primary Petrographer: Dr. Hyman of [facility]
Assessment:
Presentation to [facility] with SOB requiring BIPAP 10/17/24
Acute on chronic hypoxic respiratory insufficiency, chronically on 2L NC
Acute on chronic HFpEF
LVOT echodensity by echo
Elevated troponin
COPD
ESRD on HD since 03/2024
Anemia of chronic disease
PAD s/p B/L femoral endarterectomy
PVD
Carotid stenosis s/p R CEA 2020
HTN
HLD
PAF
Chronic amio therapy
Chronic eliquis therapy
History of bladder cancer
Hearing loss, wears hearing aids
DJD s/p lumbar laminectomy 2021
DNR code status
ECHO 04/11/2023: EF 65%, stage I diastolic dysfunction, MAC mild MR, possible bicuspid aortic valve, mild with peak/mean gradients 18/7 mmHg, LEONARDO 2.0 cm�, trace AI, mild TR, PAP 46 mmHg, mild pulm HTN
ECHO at [facility] 03/25/2024: EF 60.5%, concentric remodeling of LV, moderate to severe TR, mild MR with moderate anterior leaflet thickening, mild RVSP 67.4
ECHO 10/19/24: EF 60 to 65%, stage II diastolic dysfunction, echodensity seen in LVOT, enlarged RV size with normal function, mild MR, moderate , possible bicuspid with peak/mean gradients 35/20 mmHg, LEONARDO 1.1 cm�, mild AR, severe TR, PAP 60 to 65
mmHg
Plan:
- Patient presented to [facility] with shortness of breath requiring BiPAP. He was transferred to [facility] 10/17/2024 for urgent dialysis
- obtained and reviewed records from primary glass frame fitter including cardiology consult dated 10/17/24, last echo 03/25/24
- Continue with volume removal per HD/nephrology. He remains with conversational dyspnea, however is improving compared to admission. check proBNP, ordered by me. review of [facility] records with proBNP of 51K with prior baseline ~5K.
- Continue to wean supplemental oxygen, chronically on 2 L nasal cannula
- CHF education
- continue OP jardiance
- Echo with results as above. Noted to have echodensity seen in LVOT. Will likely require SULEIMAN at some point this admission when breathing stabilized to evaluate further. Will also check blood cultures to rule out acute infectious etiology. Of
note does not appear septic
- Cardiology also consulted as noted to have elevated troponin of 1.8 on arrival and trending down. Patient without chest pain. check EKG, ordered by me, reportedly stable at [facility] SR with lateral ST depressions, stable compared to prior. Echo with
preserved EF. Would consider for outpatient ischemic evaluation once recovered through primary glass frame fitter.
- In sinus rhythm on review of telemetry. continue amiodarone 200mg daily
- Continue OP Plavix, Eliquis. hgb stable at 9.3
- check CVE. on crestor 10mg QPM
Data Reviewed
-
Radiology: Report Reviewed by me
CT Scan: Report Reviewed by me
Medical Tests (Nuc Med, Echo etc): Image Personally Visualized and interpreted and Report Reviewed by me
Labs: Labs Reviewed by me
Old Records: Reviewed
[2024-10-20 16:36] LABS: NT-proBNP > 27000 pg/ml
[2024-10-20] MEDS: PLAVIX 75 MG PO (18:15)
[2024-10-20] MEDS: CRESTOR 10 MG PO (18:15)
[2024-10-20] MEDS: TOPROL XL 12.5 MG PO (18:15)
--- NOTE | 2024-10-20 18:38 | PTCARENOTE ---
Rec'd pt this AM. Tolerated HD well, BP meds given after HD. OOB to chair for lunch.
[2024-10-20] MEDS: NORVASC 5 MG PO (20:08)
[2024-10-20] MEDS: AMBIEN 5 MG PO (22:19)
--- NOTE | 2024-10-20 22:34 | PTCARENOTE ---
Care assumed of Pt from dwayne HOOKER. Pt is AAOx3. NSR on monitor. satting 98% on 3L 02. took hs pills whole with water. assessment as documented. call light in reach. care is ongoing.
[2024-10-21] VITALS (21 sets, daily range): BP systolic 155–182; BP diastolic 53–117; PULSE 64; O2SAT 99; BMI 19.5
[2024-10-21 05:24] LABS: Hematocrit 31.9 % (39.0-52.0); Hemoglobin 10.8 g/dL (13.0-18.0); Mean Corp Hgb Conc. 33.9 g/dL (33.0-37.0); Mean Corpuscular Hgb 35.4 pg (27.0-31.0); Mean Corpuscular Volume 104.6 fL (80.0-94.0); Mean Platelet Volume 9.4 fL (7.4-10.4); Platelet Count 217 10^3/uL (130-400); Red Blood Cell Count 3.05 10^6/uL (4.70-6.10); Red Cell Dist. Width 13.8 % (11.5-14.5); White Blood Cell Count 8.6 10^3/uL (4.8-10.8)
[2024-10-21 05:53] LABS: Blood Urea Nitrogen 38 mg/dl (9-20); Calcium 9.1 mg/dl (8.4-10.2); Carbon Dioxide 28 mmol/L (22-30); Chloride 100 mmol/L (98-107); Estimated Creatinine Clearance 9 ml/min; Glucose 98 mg/dl (70-99); HDL Cholesterol 77 mg/dl; LDL Cholesterol, Calculated 65 mg/dl; Potassium 4.2 mmol/L (3.5-5.1); Sodium 138 mmol/L (135-145); Total Cholesterol 161 mg/dl (50-199); Triglyceride 97 mg/dl (10-149); Very Low Density Lipoprotein 19 mg/dl (0-30)
[2024-10-21] MEDS: SPIRIVA RESPIMAT 2.5 MCG 2 PUFF INH (07:14)
[2024-10-21] MEDS: SYMBICORT 80/4.5 MCG INHALER 2 PUFF INH ×2 (07:14→19:53)
--- NOTE | 2024-10-21 07:39 | W.PN.CARDCBS ---
Addendum entered and electronically signed by Robin Edge DO 10/21/24 09:18:
I saw and examined the patient.
The Parliamentary Archivist's note was reviewed and I agree with the note.
Comment:
Plan:
Cont volume control through HD for HF
HF potentially from less vol taken on HD as well as HTN
Appreciate nephrology input
Increase Hydralazine for better bp control.
Reviewed echo and echodensity is Not a new finding on echo and is seen on prior echo
No clinical evidence of sepsis at this time.
Consider outpt SULEIMAN for further eval as would not change acute management
Trop likely nonMI troponin. Consider ischemic eval as outpt
H/H stable on outpt Plavix and Eliquis.
Outside cardiology group has been updated
Original Note:
Today's Communication / Plan
-
continue volume mgmt through HD
consider uptitration of hydralazine
likely hold off on inpatient SULEIMAN if blood cultures negative and echo finding noted previously
consider for OP ischemic evaluation
Impression / Plan
-
Primary Medicare Interviewer: Dr. Hyman of [facility]
Assessment:
Presentation to [facility] with SOB requiring BIPAP 10/17/24
Acute on chronic hypoxic respiratory insufficiency, chronically on 2L NC
Acute on chronic HFpEF
LVOT echodensity by echo
Elevated troponin
COPD
ESRD on HD since 03/2024
Anemia of chronic disease
PAD s/p B/L femoral endarterectomy
PVD
Carotid stenosis s/p R CEA 2020
HTN
HLD
PAF
Chronic amio therapy
Chronic eliquis therapy
History of bladder cancer
Hearing loss, wears hearing aids
DJD s/p lumbar laminectomy 2021
DNR code status
ECHO 04/11/2023: EF 65%, stage I diastolic dysfunction, MAC mild MR, possible bicuspid aortic valve, mild with peak/mean gradients 18/7 mmHg, LEONARDO 2.0 cm�, trace AI, mild TR, PAP 46 mmHg, mild pulm HTN
ECHO at [facility] 03/25/2024: EF 60.5%, concentric remodeling of LV, moderate to severe TR, mild MR with moderate anterior leaflet thickening, mild RVSP 67.4
ECHO 10/19/24: EF 60 to 65%, stage II diastolic dysfunction, echodensity seen in LVOT, enlarged RV size with normal function, mild MR, moderate , possible bicuspid with peak/mean gradients 35/20 mmHg, LEONARDO 1.1 cm�, mild AR, severe TR, PAP 60 to 65
mmHg
Plan:
- Patient presented to [facility] on 10/17/24 with shortness of breath requiring BiPAP. He was transferred to [facility] 10/17/2024 for urgent dialysis
- continue volume removal per HD/nephro. proBNP at [facility] was 51K on 10/17 and on 10/20 was still >[id number]. baseline proBNP reportedly 5K according to [facility] records
- wean supp O2 as able
- CHF education
- continue OP jardiance
- BPs remain elevated. norvasc was increased to 5mg BID and toprol 12.5mg daily was added 10/20. he states in past he was on multiple BP medications however then his BP dropped and many meds were stopped due to this. he states since then he has noted
his BP slowly trending back up as OP. would consider uptitration of hydralazine, however discussed with patient also need to be careful with dropping BP too much in setting of HD
- Echo with results as above. Noted to have echodensity seen in LVOT, which upon physician review of prior echos was also noted. Will discuss with primary private mortgage banker safe, but may attempt to avoid procedures given significant lung disease if finding
is chronic. blood cultures pending, but does not appear septic
- peak troponin of 1.8 on arrival and trending down. Patient without chest pain. EKG appears stable with noted chronic lateral ST depressions compared to prior. Echo with preserved EF. Would consider for outpatient ischemic evaluation once
recovered through primary private mortgage banker safe.
- In sinus rhythm on review of telemetry overnight. continue amiodarone 200mg daily
- Continue OP Plavix, Eliquis. hgb stable at 9.3
- LDL 65. on crestor 10mg QPM
-we discussed importance of continued OP follow up with pulm, unclear if has had recent PFTs. followed by Dr. Patrick as well as with [facility]
- he is eager for DC
Progress Note - Medicare Interviewer
Subjective
Date of Service: October 21, 2024
denies CP. reports 'my breathing is as good as it is going to get.'
Objective
Labs:
10/21/24 04:51
10/21/24 04:51
Labs
Hgb 10.8 g/dL (13.0-18.0) L 10/21/24 04:51
Hct 31.9 % (39.0-52.0) L 10/21/24 04:51
Plt Count 217 10^3/uL (130-400) 10/21/24 04:51
Sodium 138 mmol/L (135-145) 10/21/24 04:51
Potassium 4.2 mmol/L (3.5-5.1) 10/21/24 04:51
BUN 38 mg/dl (9-20) H 10/21/24 04:51
Creatinine 4.8 mg/dL (0.7-1.3) H* 10/21/24 04:51
Glucose 98 mg/dl (70-99) 10/21/24 04:51
Vital Signs and I&O:
Vital Signs
Temp Pulse Resp BP Pulse Ox
98.9 F 74 18 164/55 94
10/21/24 03:00 10/21/24 07:18 10/21/24 07:18 10/21/24 01:30 10/21/24 07:18
Vital Signs
Temp Pulse Resp BP Pulse Ox
98.9 F 74 18 164/55 94
10/21/24 03:00 10/21/24 07:18 10/21/24 07:18 10/21/24 01:30 10/21/24 07:18
Intake & Output
10/18/24 10/19/24 10/20/24 10/21/24
07:59 07:59 07:59 07:59
Intake Total 100 / 100 1080 / 1080
Balance 100 / 100 1080 / 1080
Physical Exam
Physical Exam
GEN: No distress, awake, alert, oriented x3. [place]. on supp O2
HEENT: supple, anicteric, mmm, eomi
LUNGS: Scattered wheezes L>R
CV: Reg, S1/S2, 1/6 syst LSB
ABD: soft, BS+, NT/ND
EXT: No cyanosis, clubbing, edema
NEURO: Gross non-focal
SKIN: Warm, pink, dry. No rash
[2024-10-21] MEDS: PACERONE 200 MG PO (08:48)
[2024-10-21] MEDS: APRESOLINE 25 MG PO (08:49)
[2024-10-21] MEDS: PROTONIX 40 MG PO (08:49)
[2024-10-21] MEDS: NORVASC 5 MG PO ×2 (08:49→21:36)
[2024-10-21] MEDS: TOPROL XL 12.5 MG PO (08:50)
[2024-10-21] MEDS: CORTISPORIN OTIC SUSPENSION 1 DROP BOTH EARS (08:50)
[2024-10-21] MEDS: ELIQUIS 2.5 MG PO ×2 (08:50→21:36)
[2024-10-21] MEDS: RENVELA PO (08:50)
--- NOTE | 2024-10-21 10:33 | W.PN.NEPH.PH ---
Today's Communication / Plan
-
Dialysis tomorrow
Assessment/Plan
-
Assessment:
Acute on Chronic Hypoxic Respiratory Failure
Acute on Chronic heart failure preserved Ejection Fraction
ESRD on HD-TTS [place], HD since Mar 2024
COPD exacerbation
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
Essential HTN
Paroxysmal Atrial Fibrillation
PAD-history bilateral bypass 04/22
Carotid Stenosis s/p CEA 03/2021
Matured right brachial AVF
hyperphosphatemia
Anemia of CKD
Plan:
A/w resp failure from [facility], was on BIPAP
improving resp status close to baseline on 2 L chronically
BP stable on home meds/discontinuing sevelamer as patient difficulty swallowing as discussed with the nurse she is only on 1 daily could adjust outpatient dialysis
Echo report= preserved EF diastolic dysfunction
renal diet and FR 33ounces/day
HD tomorrow
d/w pt
-
-
Date of Service: October 21, 2024
CC / HPI / ROS
-
Chief Complaint:
ESRD
History of Present Illness:
BP are stable
wt is up
on 2lit of O2
no fever
Review of Systems:
sob much better, , close to baseline on chronic 2 L outpatient
no CP.
Labs
-
Labs:
WBC 8.6 10^3/uL (4.8-10.8) 10/21/24 04:51
RBC 3.05 10^6/uL (4.70-6.10) L 10/21/24 04:51
Hgb 10.8 g/dL (13.0-18.0) L 10/21/24 04:51
Hct 31.9 % (39.0-52.0) L 10/21/24 04:51
Plt Count 217 10^3/uL (130-400) 10/21/24 04:51
Sodium 138 mmol/L (135-145) 10/21/24 04:51
Potassium 4.2 mmol/L (3.5-5.1) 10/21/24 04:51
Chloride 100 mmol/L (98-107) 10/21/24 04:51
Carbon Dioxide 28 mmol/L (22-30) 10/21/24 04:51
BUN 38 mg/dl (9-20) H 10/21/24 04:51
Creatinine 4.8 mg/dL (0.7-1.3) H* 10/21/24 04:51
eGFR 11.30 10/21/24 04:51
Glucose 98 mg/dl (70-99) 10/21/24 04:51
Calcium 9.1 mg/dl (8.4-10.2) 10/21/24 04:51
Crk-E-Xmxbsqcpnee Pept > 18149 pg/ml 10/20/24 08:43
Physical Exam
-
Vital Signs:
Vital Signs
Temp Pulse Resp BP Pulse Ox
98.3 F 71 18 173/72 94
10/21/24 07:58 10/21/24 08:50 10/21/24 07:18 10/21/24 08:50 10/21/24 07:18
Cardiovascular:: Regular rate and rhythm
Respiratory:: Bilateral: Coarse
Lung Excursion:: Normal (decreased BS)
Abdomen:: Nontender and Soft
Extremity Edema:: None: Bilateral:
Ansari Catheter: No
--- NOTE | 2024-10-21 13:36 | W.PN.HOSP.TC ---
Today's Communication/Plan
-
HD tomorrow
Assessment / Plan
Assessment / Plan
Mr. Garcia Garcia is a 84 yo man with hx COPD, chronic hypoxic respiratory failure on 2L ESRD on HD, PAD s/p bilateral bypass surgery and endarterectomy (03/2023), s/p CEA 03/2021, essential HTN, paroxysmal atrial fibrillation, heart failure
preserve EF who presented to [facility] earlier this morning complaining of shortness of breath. When he woke up he noticed his oxygen was off but he was unable to recover prompting him to come to the ER. His O2 sat was in 60-70's. He was
placed on BiPAP in ER, arrives on 6L here. CXR showed pulmonary edema. Patient transferred to for urgent HD. He had frothy pink sputum on arrival in setting of pulmonary edema.
Acute on Chronic Hypoxic Respiratory Failure
Acute on Chronic heart failure preserved Ejection Fraction
ESRD on HD
-appreciate renal consult
-wean O2 as able (patient on 2L at home)
-further HD per renal, plan for tomorrow
-stop Jardiance
COPD
-continue home inhalers, no active wheezing heard on exam
Elevated Troponin; non ischemic myocardial injury
- noted at [place] with Cardiology consult suspected non ischemic myocardial injury in setting of prolonged hypoxia, volume overload and renal disease
- Troponin trending down post fluid removal
- patient without chest pain
- TTE follow-up�EF 60 to 65%, stage II diastolic dysfunction
- STOCK SAW OPERATOR Plavix; Eliquis
-Cards consulted
#ECHO Density seenin LVOT
-cardiology consulted
Essential HTN
-STOCK SAW OPERATOR regimen
Paroxysmal Atrial Fibrillation
-STOCK SAW OPERATOR Eliquis
PAD
-history bilateral bypass 04/22
-STOCK SAW OPERATOR Plavix/Eliquis/Statin
Carotid Stenosis s/p CEA 03/2021
DVT PPx STOCK SAW OPERATOR Eliquis
DNR -
Anticipated Discharge: > 48 hours
Subjective/Interval History
-
Date of Service: October 21, 2024
Improvement in respiratory status dialysis sessions
Objective Data
-
Labs:
Laboratory Results
10/21/24
04:51
WBC 8.6
Hgb 10.8 L
Hct 31.9 L
Plt Count 217
Sodium 138
Potassium 4.2
Chloride 100
Carbon Dioxide 28
BUN 38 H
Creatinine 4.8 H*
Glucose 98
Calcium 9.1
Vital Signs:
Vital Signs
Temp Pulse Resp BP Pulse Ox
98.4 F 70 23 158/62 100
10/21/24 11:34 10/21/24 12:00 10/21/24 12:00 10/21/24 11:39 10/21/24 12:00
Review of Systems
-
History Source: Patient
All other systems: Not reviewed unless documented
Data Reviewed
-
Diagnostic Radiology: Report Reviewed by me
Labs: Labs Reviewed by me
[2024-10-21] MEDS: TYLENOL 1000 MG PO (13:46)
--- NOTE | 2024-10-21 17:17 | CM ---
Patient from [facility] with Hx ESRD on HD with Dx HF, COPD. O2 2L. PT recommends HH.
As per Initial CM Assessment, patient has home O2.
[facility] (ph Intake [phone], .)
Plan home with [facility].
[2024-10-21] MEDS: CRESTOR 10 MG PO (18:09)
[2024-10-21] MEDS: PLAVIX 75 MG PO (18:09)
[2024-10-21] MEDS: APRESOLINE 50 MG PO (21:28)
--- NOTE | 2024-10-21 22:42 | PTCARENOTE ---
Pt received from dwayne HOOKER. Pt aaox3. NSR on monitor. making needs known, using call light appropriately. took hs pills with water.
[2024-10-21] MEDS: AMBIEN 5 MG PO (23:15)
[2024-10-22] VITALS (29 sets, daily range): BP systolic 94–193; BP diastolic 52–86; BMI 19.8
[2024-10-22 04:37] LABS: Hematocrit 31.4 % (39.0-52.0); Hemoglobin 10.7 g/dL (13.0-18.0); Mean Corp Hgb Conc. 34.1 g/dL (33.0-37.0); Mean Corpuscular Hgb 36.1 pg (27.0-31.0); Mean Corpuscular Volume 106.1 fL (80.0-94.0); Mean Platelet Volume 9.4 fL (7.4-10.4); Platelet Count 225 10^3/uL (130-400); Red Blood Cell Count 2.96 10^6/uL (4.70-6.10); Red Cell Dist. Width 14.1 % (11.5-14.5); White Blood Cell Count 7.9 10^3/uL (4.8-10.8)
[2024-10-22 05:01] LABS: Blood Urea Nitrogen 50 mg/dl (9-20); Calcium 9.2 mg/dl (8.4-10.2); Carbon Dioxide 27 mmol/L (22-30); Chloride 100 mmol/L (98-107); Estimated Creatinine Clearance 6 ml/min; Glucose 103 mg/dl (70-99); Potassium 4.2 mmol/L (3.5-5.1); Sodium 137 mmol/L (135-145); eGFR 7.31
[2024-10-22] MEDS: SPIRIVA RESPIMAT 2.5 MCG 2 PUFF INH (07:22)
[2024-10-22] MEDS: SYMBICORT 80/4.5 MCG INHALER 2 PUFF INH ×2 (07:22→19:38)
[2024-10-22] MEDS: CORTISPORIN OTIC SUSPENSION 1 DROP BOTH EARS (09:01)
[2024-10-22] MEDS: TYLENOL 1000 MG PO ×2 (09:55→20:13)
--- NOTE | 2024-10-22 09:58 | W.PN.CARDCBS ---
Addendum entered and electronically signed by Anna Griffiths PA-C 10/22/24 11:50:
Called [facility] to arrange for outpatient cardiac follow-up. Appointment given was 12/25/2024 at 2 PM, although I had requested appointment around 2-3 weeks from now. Reportedly appointment was reviewed with patient's primary solar sales specialist who agreed
with 12/25 timeframe.
Addendum entered and electronically signed by Robin Edge DO 10/22/24 11:33:
I saw and examined the patient.
The Associate Professor Of Biblical Studies's note was reviewed and I agree with the note.
Comment:
Plan:
Cont volume management as per nephrology with HD
Cont current regimen for HTN including increased Hydralazine.
Cont Eliquis and Plavix
outpt follow up with [facility] regarding his echo findings which are not new. He will be given a disc for this to bring to his cardiology visit
Outpt follow up to discuss potential ischemic eval for mild troponin
he remains stable from cardiac standpoint.
Will arrange outpt follow up
Please recall if needed.
Original Note:
Today's Communication / Plan
-
Volume management per nephrology/HD ongoing
Continue current antihypertensive regimen of Toprol, Norvasc, hydralazine.
In sinus rhythm on Amio
continue plavix, eliquis
will arrange OP cardiac follow up with [facility]
Impression / Plan
-
Primary Steel Tester: Dr. Hyman of [facility]
Assessment:
Presentation to [facility] with SOB requiring BIPAP 10/17/24
Acute on chronic hypoxic respiratory insufficiency, chronically on 2L NC
Acute on chronic HFpEF
LVOT echodensity by echo
Elevated troponin
COPD
ESRD on HD since 03/2024
Anemia of chronic disease
PAD s/p B/L femoral endarterectomy
PVD
Carotid stenosis s/p R CEA 2020
HTN
HLD
PAF
Chronic amio therapy
Chronic eliquis therapy
History of bladder cancer
Hearing loss, wears hearing aids
DJD s/p lumbar laminectomy 2021
DNR code status
ECHO 04/11/2023: EF 65%, stage I diastolic dysfunction, MAC mild MR, possible bicuspid aortic valve, mild with peak/mean gradients 18/7 mmHg, LEONARDO 2.0 cm�, trace AI, mild TR, PAP 46 mmHg, mild pulm HTN
ECHO at [facility] 03/25/2024: EF 60.5%, concentric remodeling of LV, moderate to severe TR, mild MR with moderate anterior leaflet thickening, mild RVSP 67.4
ECHO 10/19/24: EF 60 to 65%, stage II diastolic dysfunction, echodensity seen in LVOT, enlarged RV size with normal function, mild MR, moderate , possible bicuspid with peak/mean gradients 35/20 mmHg, LEONARDO 1.1 cm�, mild AR, severe TR, PAP 60 to 65
mmHg
Plan:
- Patient presented to [facility] on 10/17/24 with shortness of breath requiring BiPAP. He was transferred to [facility] 10/17/2024 for urgent dialysis
- continue volume removal per HD/nephro. proBNP at [facility] was 51K on 10/17 and on 10/20 was still >[id number]. baseline proBNP reportedly 5K according to [facility] records. on HD currently
- wean supp O2 as able, on 2L NC chronically
- CHF education
- continue OP jardiance
- Blood pressure trends are overall improving, however presently on dialysis blood pressure is 116/67. Hesitant to continue to aggressively uptitrate, as with blood pressure drops with dialysis. Can continue to monitor as an outpatient, patient
states he takes his blood pressures at home regularly, and can make further adjustments pending trends. Continue regimen of Norvasc 5 mg twice daily, Toprol 12.5 mg daily, hydralazine 50 mg twice daily.
- Echo with results as above. Noted to have echodensity seen in LVOT, which upon physician review of prior echos was also noted. Blood cultures negative at 24 hours. Will give patient copy of echo disc to bring to primary solar sales specialist for their
review. Could consider for outpatient SULEIMAN if felt to be a new finding.
- peak troponin of 1.8 on arrival and trending down. Patient without chest pain. EKG appears stable with noted chronic lateral ST depressions compared to prior. Echo with preserved EF. Would consider for outpatient ischemic evaluation once
recovered through primary solar sales specialist.
- In sinus rhythm on review of telemetry overnight. continue amiodarone 200mg daily
- Continue OP Plavix, Eliquis.
- LDL 65. on crestor 10mg QPM
- we discussed importance of continued OP follow up with pulm, unclear if has had recent PFTs. followed by Dr. Patrick as well as with [facility]
- Okay for discharge from cardiac standpoint. Will arrange outpatient cardiac follow-up with [facility].
Progress Note - Steel Tester
Subjective
Date of Service: October 22, 2024
No chest pain. Reports feeling tired. On HD
Objective
Labs:
10/22/24 04:09
10/22/24 04:09
Labs
Hgb 10.7 g/dL (13.0-18.0) L 10/22/24 04:09
Hct 31.4 % (39.0-52.0) L 10/22/24 04:09
Plt Count 225 10^3/uL (130-400) 10/22/24 04:09
Sodium 137 mmol/L (135-145) 10/22/24 04:09
Potassium 4.2 mmol/L (3.5-5.1) 10/22/24 04:09
BUN 50 mg/dl (9-20) H 10/22/24 04:09
Creatinine 6.9 mg/dL (0.7-1.3) H* 10/22/24 04:09
Glucose 103 mg/dl (70-99) H 10/22/24 04:09
Vital Signs and I&O:
Vital Signs
Temp Pulse Resp BP Pulse Ox
97.7 F 65 25 158/67 98
10/22/24 07:42 10/22/24 08:00 10/22/24 08:00 10/22/24 08:00 10/22/24 09:44
Vital Signs
Temp Pulse Resp BP Pulse Ox
97.7 F 65 25 158/67 98
10/22/24 07:42 10/22/24 08:00 10/22/24 08:00 10/22/24 08:00 10/22/24 09:44
Intake & Output
10/20/24 10/21/24 10/22/24 10/23/24
07:59 07:59 07:59 07:59
Intake Total 240 / 240
Balance 240 / 240
Physical Exam
Physical Exam
GEN: No distress, awake, alert, oriented x3. WIYOT. on supp O2
HEENT: supple, anicteric, mmm, eomi
LUNGS: CTA B/L
CV: Reg, S1/S2, 1/6 syst LSB
ABD: soft, BS+, NT/ND
EXT: No cyanosis, clubbing, edema
NEURO: Gross non-focal
SKIN: Warm, pink, dry. No rash. R chest tunneled catheter
--- NOTE | 2024-10-22 11:41 | W.PN.NEPH.HD ---
Assessment
-
Tolerated ultrafiltration 3 L goal
Progress Note - Hemodialysis
-
Date of Service: October 22, 2024
Duration: 30 minutes and 3 hours
Potassium Bath: 2
Calcium Bath: 2.5
Opti-Dialyzer: 160
Ultrafiltration: Other (3kg)
Blood Flow: 400
Dialysate Flow: 600
Heparin: none
EPO: Yes
[2024-10-22] MEDS: PROTONIX 40 MG PO (12:25)
[2024-10-22] MEDS: ELIQUIS 2.5 MG PO ×2 (12:25→20:14)
[2024-10-22] MEDS: PACERONE PO (12:28)
[2024-10-22] MEDS: APRESOLINE PO (12:28)
[2024-10-22] MEDS: NORVASC PO (12:28)
[2024-10-22] MEDS: TOPROL XL PO (12:29)
--- NOTE | 2024-10-22 14:16 | W.PN.HOSP.TC ---
Today's Communication/Plan
-
HD today
f/u cards outpt
Assessment / Plan
Assessment / Plan
Mr. Garcia Garcia is a 84 yo man with hx COPD, chronic hypoxic respiratory failure on 2L ESRD on HD, PAD s/p bilateral bypass surgery and endarterectomy (03/2023), s/p CEA 03/2021, essential HTN, paroxysmal atrial fibrillation, heart failure
preserve EF who presented to [facility] earlier this morning complaining of shortness of breath. When he woke up he noticed his oxygen was off but he was unable to recover prompting him to come to the ER. His O2 sat was in 60-70's. He was
placed on BiPAP in ER, arrives on 6L here. CXR showed pulmonary edema. Patient transferred to for urgent HD. He had frothy pink sputum on arrival in setting of pulmonary edema.
Acute on Chronic Hypoxic Respiratory Failure
Acute on Chronic heart failure preserved Ejection Fraction
ESRD on HD
-appreciate renal consult
-wean O2 as able (patient on 2L at home)
-further HD per renal, HD today
-stop Jardiance
COPD
-continue home inhalers, no active wheezing heard on exam
Elevated Troponin; non ischemic myocardial injury
- noted at [place] with Cardiology consult suspected non ischemic myocardial injury in setting of prolonged hypoxia, volume overload and renal disease
- Troponin trending down post fluid removal
- patient without chest pain
- TTE follow-up�EF 60 to 65%, stage II diastolic dysfunction
- CHEMICAL DETECTION EXPERT Plavix; Eliquis
-Cards consulted - outpt ischemic eval
#ECHO Density seenin LVOT
-cardiology consulted
-Outpt follow up - 12/25 at 2PM
Essential HTN
-CHEMICAL DETECTION EXPERT regimen
Paroxysmal Atrial Fibrillation
-CHEMICAL DETECTION EXPERT Eliquis
PAD
-history bilateral bypass 04/22
-CHEMICAL DETECTION EXPERT Plavix/Eliquis/Statin
Carotid Stenosis s/p CEA 03/2021
DVT PPx CHEMICAL DETECTION EXPERT Eliquis
DNR -
Anticipated Discharge: 24 - 48 hours
Subjective/Interval History
-
Date of Service: October 22, 2024
no acute events
Objective Data
-
Labs:
Laboratory Results
10/22/24
04:09
WBC 7.9
Hgb 10.7 L
Hct 31.4 L
Plt Count 225
Sodium 137
Potassium 4.2
Chloride 100
Carbon Dioxide 27
BUN 50 H
Creatinine 6.9 H*
Glucose 103 H
Calcium 9.2
Vital Signs:
Vital Signs
Temp Pulse Resp BP Pulse Ox
97.4 F 82 26 96/83 98
10/22/24 11:58 10/22/24 12:25 10/22/24 12:25 10/22/24 12:28 10/22/24 10:15
I&O
10/21/24 10/22/24 10/23/24
06:59 06:59 06:59
Intake Total 240 / 240
Balance 240 / 240
Review of Systems
-
History Source: Patient
All other systems: Not reviewed unless documented
Physical Exam
-
General: No Apparent Distress and Conversant
HEENT: PERRLA
Respiratory: Negative Wheezes
Cardiac: Regular Rhythm and S1/S2
GI: Soft and Nontender
Musculoskeletal: No Edema
Skin: Warm and Dry
Neuro: AO x 3
Psych: Calm
Data Reviewed
-
Diagnostic Radiology: Report Reviewed by me
Labs: Labs Reviewed by me
--- NOTE | 2024-10-22 16:57 | CM ---
Addendum entered by Josy Millan RN 10/22/24 17:01:
O2 3L today.
Original Note:
Patient from [facility] with Hx ESRD on HD with Dx HF, COPD. O2 2L. PT recommends HH.
As per Initial CM Assessment, patient has home O2.
Phone message from [facility] (ph Intake [phone], ); please call day prior to discharge. Sent message via [facility] probable d/c 1-2 days.
Plan home with [facility].
[2024-10-22] MEDS: PLAVIX 75 MG PO (17:24)
[2024-10-22] MEDS: CRESTOR 10 MG PO (17:24)
[2024-10-22] MEDS: APRESOLINE 50 MG PO (20:14)
[2024-10-22] MEDS: NORVASC 5 MG PO (20:14)
--- NOTE | 2024-10-22 23:45 | PTCARENOTE ---
Pt received from dwayne RN. Pt resting in chair comfortably. NSR on monitor. wearing b/l hearing aides. assessment as documented. call light in reach.
[2024-10-23] VITALS (9 sets, daily range): BP systolic 132–173; BP diastolic 61–73; PULSE 69; O2SAT 98; BMI 18.7
[2024-10-23] MEDS: AMBIEN 5 MG PO (00:34)
[2024-10-23 04:52] LABS: Hematocrit 35.1 % (39.0-52.0); Hemoglobin 11.9 g/dL (13.0-18.0); Mean Corp Hgb Conc. 33.9 g/dL (33.0-37.0); Mean Corpuscular Hgb 35.7 pg (27.0-31.0); Mean Corpuscular Volume 105.4 fL (80.0-94.0); Mean Platelet Volume 9.3 fL (7.4-10.4); Platelet Count 275 10^3/uL (130-400); Red Blood Cell Count 3.33 10^6/uL (4.70-6.10); Red Cell Dist. Width 13.9 % (11.5-14.5); White Blood Cell Count 7.9 10^3/uL (4.8-10.8)
[2024-10-23 05:12] LABS: Blood Urea Nitrogen 30 mg/dl (9-20); Calcium 9.5 mg/dl (8.4-10.2); Carbon Dioxide 26 mmol/L (22-30); Chloride 99 mmol/L (98-107); Estimated Creatinine Clearance 9 ml/min; Glucose 105 mg/dl (70-99); Potassium 4.1 mmol/L (3.5-5.1); Sodium 138 mmol/L (135-145); eGFR 12.21
[2024-10-23] MEDS: SPIRIVA RESPIMAT 2.5 MCG 2 PUFF INH (07:57)
[2024-10-23] MEDS: SYMBICORT 80/4.5 MCG INHALER 2 PUFF INH (07:57)
[2024-10-23] MEDS: TOPROL XL 12.5 MG PO (10:03)
[2024-10-23] MEDS: APRESOLINE 50 MG PO (10:03)
[2024-10-23] MEDS: CORTISPORIN OTIC SUSPENSION 1 DROP BOTH EARS (10:03)
[2024-10-23] MEDS: PACERONE 200 MG PO (10:04)
[2024-10-23] MEDS: NORVASC 5 MG PO (10:04)
[2024-10-23] MEDS: ELIQUIS 2.5 MG PO (10:04)
[2024-10-23] MEDS: PROTONIX 40 MG PO (10:04)
--- NOTE | 2024-10-23 10:28 | W.PN.NEPH.PH ---
Today's Communication / Plan
-
Dialysis tomorrow if patient still here
Stable for discharge from nephrology standpoint
Assessment/Plan
-
Assessment:
Acute on Chronic Hypoxic Respiratory Failure
Acute on Chronic heart failure preserved Ejection Fraction
ESRD on HD-TTS [place], HD since Mar 2024
COPD exacerbation
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
Essential HTN
Paroxysmal Atrial Fibrillation
PAD-history bilateral bypass 04/22
Carotid Stenosis s/p CEA 03/2021
Matured right brachial AVF
hyperphosphatemia
Anemia of CKD
Plan:
A/w resp failure from [facility], was on BIPAP
improving resp status close to baseline on 2 L chronically
BP stable on home meds/discontinuing sevelamer as patient difficulty swallowing as discussed with the nurse she is only on 1 daily could adjust outpatient dialysis
Echo report= preserved EF diastolic dysfunction
renal diet and FR 33ounces/day
HD tomorrow, continue to reduce EDW as hemodynamically tolerated
d/w pt
-
-
Date of Service: October 23, 2024
CC / HPI / ROS
-
Chief Complaint:
ESRD
History of Present Illness:
BP are stable
on 2lit of O2
no fever
Review of Systems:
sob much better, , close to baseline on chronic 2 L outpatient
no CP
Weight is down
Labs
-
Labs:
WBC 7.9 10^3/uL (4.8-10.8) 10/23/24 04:00
RBC 3.33 10^6/uL (4.70-6.10) L 10/23/24 04:00
Hgb 11.9 g/dL (13.0-18.0) L 10/23/24 04:00
Hct 35.1 % (39.0-52.0) L 10/23/24 04:00
Plt Count 275 10^3/uL (130-400) D 10/23/24 04:00
Sodium 138 mmol/L (135-145) 10/23/24 04:00
Potassium 4.1 mmol/L (3.5-5.1) 10/23/24 04:00
Chloride 99 mmol/L (98-107) 10/23/24 04:00
Carbon Dioxide 26 mmol/L (22-30) 10/23/24 04:00
BUN 30 mg/dl (9-20) H 10/23/24 04:00
Creatinine 4.5 mg/dL (0.7-1.3) H* 10/23/24 04:00
eGFR 12.21 10/23/24 04:00
Glucose 105 mg/dl (70-99) H 10/23/24 04:00
Calcium 9.5 mg/dl (8.4-10.2) 10/23/24 04:00
Ttj-U-[place] Pept > 54783 pg/ml 10/20/24 08:43
Physical Exam
-
Vital Signs:
Vital Signs
Temp Pulse Resp BP Pulse Ox
98.3 F 65 14 158/70 95
10/23/24 07:49 10/23/24 08:01 10/23/24 08:01 10/23/24 06:00 10/23/24 08:01
Cardiovascular:: Regular rate and rhythm
Respiratory:: Bilateral: Coarse
Lung Excursion:: Normal (decreased BS)
Abdomen:: Nontender and Soft
Extremity Edema:: None: Bilateral:
Ansari Catheter: No
--- NOTE | 2024-10-23 11:52 | W.PN.HOSP.TC ---
Addendum entered and electronically signed by Sina Avina MD 10/25/24 14:53:
[id number]
Original Note:
Today's Communication/Plan
-
HD scheduled for tomorrow
Cards for ochodensity in LVOT
on 2L - baseline
Assessment / Plan
Assessment / Plan
Mr. Garcia Garcia is a 84 yo man with hx COPD, chronic hypoxic respiratory failure on 2L ESRD on HD, PAD s/p bilateral bypass surgery and endarterectomy (03/2023), s/p CEA 03/2021, essential HTN, paroxysmal atrial fibrillation, heart failure
preserve EF who presented to [facility] earlier this morning complaining of shortness of breath. When he woke up he noticed his oxygen was off but he was unable to recover prompting him to come to the ER. His O2 sat was in 60-70's. He was
placed on BiPAP in ER, arrives on 6L here. CXR showed pulmonary edema. Patient transferred to for urgent HD. He had frothy pink sputum on arrival in setting of pulmonary edema.
Acute on Chronic Hypoxic Respiratory Failure
Acute on Chronic heart failure preserved Ejection Fraction
ESRD on HD
-appreciate renal consult
-wean O2 as able (patient on 2L at home)
-received HD sessions, now euvolemic
-stop Jardiance
COPD
-continue home inhalers, no active wheezing heard on exam
Elevated Troponin; non ischemic myocardial injury
- noted at [place] with Cardiology consult suspected non ischemic myocardial injury in setting of prolonged hypoxia, volume overload and renal disease
- Troponin trending down post fluid removal
- patient without chest pain
- TTE follow-up�EF 60 to 65%, stage II diastolic dysfunction
- PHOTOGRAPHIC [employer]ORATORY SUPERVISOR Plavix; Eliquis
-Cards consulted - outpt ischemic eval
#ECHO Density seenin LVOT
-cardiology consulted
-Outpt follow up - 12/25 at 2PM
Essential HTN
-PHOTOGRAPHIC LABORATORY SUPERVISOR regimen
Paroxysmal Atrial Fibrillation
-PHOTOGRAPHIC LABORATORY SUPERVISOR Eliquis
PAD
-history bilateral bypass 04/22
-PHOTOGRAPHIC LABORATORY SUPERVISOR Plavix/Eliquis/Statin
Carotid Stenosis s/p CEA 03/2021
DVT PPx PHOTOGRAPHIC LABORATORY SUPERVISOR Eliquis
DNR -
More than 30 minutes spent in discharge including
Final examination of the patient
Summarizing hospital stay
Instructions for continuing care to all relevant caregivers
Preparation of discharge records, prescriptions, and referral forms
Total time spent (in minutes): 36
Anticipated Discharge: Today
Subjective/Interval History
-
Date of Service: October 23, 2024
No acute events overnight
Objective Data
-
Labs:
Laboratory Results
10/23/24
04:00
WBC 7.9
Hgb 11.9 L
Hct 35.1 L
Plt Count 275 D
Sodium 138
Potassium 4.1
Chloride 99
Carbon Dioxide 26
BUN 30 H
Creatinine 4.5 H*
Glucose 105 H
Calcium 9.5
Vital Signs:
Vital Signs
Temp Pulse Resp BP Pulse Ox
98.3 F 73 31 154/66 94
10/23/24 07:49 10/23/24 10:00 10/23/24 10:00 10/23/24 10:00 10/23/24 10:00
I&O
10/22/24 10/23/24 10/24/24
06:59 06:59 06:59
Intake Total 240 / 240 400 / 400
Output Total 400 / 400
Balance 240 / 240 0 / 0
Review of Systems
-
History Source: Patient
All other systems: Not reviewed unless documented
Physical Exam
-
General: No Apparent Distress and Conversant
HEENT: PERRLA
Respiratory: Negative Wheezes
Cardiac: Regular Rhythm and S1/S2
GI: Soft and Nontender
Musculoskeletal: No Edema
Skin: Warm and Dry
Neuro: AO x 3
Psych: Calm
Data Reviewed
-
Diagnostic Radiology: Report Reviewed by me
Labs: Labs Reviewed by me
--- NOTE | 2024-10-23 12:10 | W.DS.TRANS ---
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
-
Discharge Instructions:
Discharge Diagnosis/Procedures
Acute on Chronic Hypoxic Respiratory Failure
Acute on Chronic heart failure preserved
Ejection Fraction
ESRD on HD
ECHO Density seen in LVOT
Diet Low Cholesterol,Low Fat,Restrict fluids to 48 oz
,2 Gram Sodium
Blood Work cbc and bmp in 1 week; labs with HD
Specialty Instructions Weigh Daily
Instructions: *PCP/Other Deployment Engineer Heart Failure Instructions
Stand-Alone Forms:
Changes to Home Medications: Yes
Discharge Medications:
DC Medications w/original date entered in [facility]
clopidogrel 75 mg tablet (Plavix) 75 mg PO QPM Blood Clot Prevention/Tx 03/27/23
pantoprazole 40 mg tablet,delayed release (Protonix) 40 mg PO DAILY Gastrointestinal Issue 03/27/23
zolpidem 6.25 mg tablet,extended release,multiphase (Ambien CR) 6.25 mg PO HS Sleep 03/27/23
albuterol sulfate 90 mcg/actuation aerosol inhaler 2 inh inhalation QID PRN sob 06/18/23
amiodarone 200 mg tablet 200 mg PO DAILY AFIB 07/30/24
ascorbic acid (vitamin C) 500 mg tablet (Vitamin C) 500 mg PO DAILY Supplement 07/30/24
empagliflozin 10 mg tablet (Jardiance) 10 mg PO DAILY Diabetes 07/30/24
fluticasone fur. 100 mcg-umeclid 62.5 mcg-vilant 25 mcg inhalat.powder (Trelegy Ellipta) 1 inh inhalation DAILY Lung/Breathing Issues 07/30/24
ensifentrine 3 mg/2.5 mL suspension for nebulization (Ohtuvayre) 2.5 ml inhalation BID COPD 08/03/24
acetaminophen 500 mg tablet (Tylenol Extra Strength) 1,000 mg PO BIDPRN PRN mild pain 10/17/24
apixaban 2.5 mg tablet (Eliquis) 2.5 mg PO BID Blood Clot Prevention/Tx 10/17/24
cokrvkwd-tzyuebpya-kvsjionah 3.5 mg-10,000 unit/mL-1 % ear drops,susp 1 drp EACH EAR DAILY EAR INFECTION 10/17/24
rosuvastatin 10 mg tablet 10 mg PO QPM High Cholesterol 10/17/24
triamcinolone acetonide 0.1 % topical cream 1 applic topical BIDPRN PRN itching skin 10/17/24
vitamin B complex-vitamin C-folic acid 0.8 mg tablet (Ana-Morenita) 1 tab PO DAILY Supplement 10/17/24
amlodipine 5 mg tablet 5 mg PO BID 30 days #60 tabs 10/23/24
hydralazine 50 mg tablet 50 mg PO BID 30 days #60 tabs 10/23/24
metoprolol succinate 25 mg tablet,extended release 24 hr 12.5 mg (1/2 x 25 mg) PO DAILY 30 days #15 tabs 10/23/24
Home Medication Changes
amlodipine 5 mg tablet 5 mg PO BID 30 days #60 tabs 10/23/24
hydralazine 50 mg tablet 50 mg PO BID 30 days #60 tabs 10/23/24
metoprolol succinate 25 mg tablet,extended release 24 hr 12.5 mg (1/2 x 25 mg) PO DAILY 30 days #15 tabs 10/23/24
Pending Results: No
--- NOTE | 2024-10-23 12:30 | PTCARENOTE ---
Received call from [facility] pharmacy. Pharmacist questioning if ordered dose of Amlodipine is correct (5mg PO BID). Dose and frequency verified with Dr. Avina, pharmacist notified.
--- NOTE | 2024-10-23 13:11 | CM ---
Chart reviewed and patient is for discharge to home today, patient is currently ambulating 200 feet, per patient his oxygen meets his needs, and his spouse plans on transporting patient to home today, patient has his portable oxygen tank in car.
Plan; Home with [facility].
Dwight Tinoco
[phone]
--- NOTE | 2024-10-23 14:20 | PTCARENOTE ---
Pt for d/c home. IV and monitor equipment removed. Instructions and med list reviewed at length with pt and . Transported off unit via wheelchair.
== END 2024-10-23 14:47 | disposition home health service (06) | DRG 291 ==
LOC: IMU 17:32
PROVIDERS: Internal Medicine Nephrology; Specialist; Student in an Organized Health Care Education/Training Program; ADMITTING PHYSICIAN Hospitalist; ATTENDING PHYSICIAN Internal Medicine; CONSULT PHYSICIAN Internal Medicine; FAMILY PHYSICIAN Family Medicine; OTHER PHYSICIAN Internal Medicine Interventional Cardiology
PROC: 5A1D70Z Performance of Urinary Filtration, Intermittent, Less than 6 Hours Per Day (ICD-10-PCS; 2024-10-17)
DX: I13.2 Hypertensive heart and chronic kidney disease with heart failure and with stage 5 chronic kidney disease, or end stage renal disease (principal); I50.33 Acute on chronic diastolic (congestive) heart failure; J96.21 Acute and chronic respiratory failure with hypoxia; N18.6 End stage renal disease; J44.1 Chronic obstructive pulmonary disease with (acute) exacerbation; E83.39 Other disorders of phosphorus metabolism; E11.22 Type 2 diabetes mellitus with diabetic chronic kidney disease; E11.51 Type 2 diabetes mellitus with diabetic peripheral angiopathy without gangrene; I48.0 Paroxysmal atrial fibrillation; I25.10 Atherosclerotic heart disease of native coronary artery without angina pectoris; D63.1 Anemia in chronic kidney disease; I5A Non-ischemic myocardial injury (non-traumatic); E78.00 Pure hypercholesterolemia, unspecified; H91.90 Unspecified hearing loss, unspecified ear; M50.30 Other cervical disc degeneration, unspecified cervical region; I07.1 Rheumatic tricuspid insufficiency; Z66 Do not resuscitate; Z87.891 Personal history of nicotine dependence; Z99.2 Dependence on renal dialysis; Z99.81 Dependence on supplemental oxygen; Z82.49 Family history of ischemic heart disease and other diseases of the circulatory system; Z82.5 Family history of asthma and other chronic lower respiratory diseases; Z88.1 Allergy status to other antibiotic agents; Z88.5 Allergy status to narcotic agent; Z88.8 Allergy status to other drugs, medicaments and biological substances; Z79.01 Long term (current) use of anticoagulants; Z79.84 Long term (current) use of oral hypoglycemic drugs; Z11.52 Encounter for screening for COVID-19; Z85.51 Personal history of malignant neoplasm of bladder; Z97.4 Presence of external hearing-aid; Z98.1 Arthrodesis status
CPT/HCPCS: 80048; 80061; 83735; 83880; 84443; 84484; 85025; 85027; 86706; 87040; 87070; 87340; 87811; 93005; 93306; 94640; 97116; 97163; 97530; G0257; P9047; Q5106